=== PATIENT | male | born 1940 | race Caucasian/White ===

== ENCOUNTER 2018-06-17 18:06 | Inpatient (IN) | payer OTHER, MEDICARE ==
[~2018-06-17] VITALS: Ht 172.7 cm; Wt 101.2 kg
[~2018-06-17 18:06] MED LIST: AMIODARONE HCL200 M1 PO; ASPIRIN EC81 M1 PO; ASPIRIN81 M4 PO; ATENOLOL25 M1 PO; ATENOLOL25 MG PO; CARDIZEM CD120 MG PO; CARDIZEM30 M1 PO; CEPHALEXIN500 MG PO; COUMADIN1 M1 PO; COUMADIN2 M1 PO; DEPAKOTE500 M1 PO; DIVALPROEX SOD500 M1 PO; FUROSEMIDE40 M1 PO; FUROSEMIDE40 MG PO; HYDROCORTISONE15 GM TOP; K-DUR 20MEQ TA20 MEQ PO; KEPPRA 500MG T500 MG PO; KEPPRA500 M1 PO; KLOR-CON M2020 ME1 PO; LEVOTHYROXINE0.05 MG PO; METOLAZONE5 MG PO; METOPROLOL SUCC25 M1 PO; SENNA8.6 M3 PO; SIMVASTATIN40 M1 PO; SIMVASTATIN40 MG PO; SYNTHROID100 MCG PO; SYNTHROID50 MCG PO; TRAMADOL HCL50 M1 PO; ULTRAM50 M1 PO
[2018-06-17] MEDS ORDERED: LEVOTHYROXINE50 MCG PO (18:56)
[2018-06-17] MEDS ORDERED: CARBIDOPA-LEVO1 EAC9 PO (18:58)
[2018-06-17] MEDS ORDERED: CARBIDOPA-LEVO1 EAC7 PO (18:59)
[2018-06-17] MEDS ORDERED: MYRBETRIQ25 M1 PO (19:00)
--- NOTE | 2018-06-17 19:28 | ED GI/GU/ABDOMINAL COMPLAINT ---
History of Present Illness General Chief Complaint: General Adult Stated Complaint: MULTIPLE COMPLIANTS Source: patient, family, old records Exam Limitations: no limitations Vital Signs & Intake/Output Vital Signs & Intake/Output Vital Signs Date Time Temp Pulse Resp B/P B/P Pulse O2 O2 Flow FiO2 Mean Ox Delivery Rate 06/18 06 98.0 62 20 127/88 95 Room Air 06/17 2237 63 20 116/82 98 Room Air 06/17 2126 98.4 66 20 129/71 96 Room Air 06/17 2006 95 Room Air 06/17 1947 98.0 66 20 128/74 95 Room Air 06/17 1842 97.6 76 18 104/71 94 Room Air ED Intake and Output 06/18 0000 06/17 1200 Intake Total Output Total Balance Patient 223 lb Weight Allergies Coded Allergies: NO KNOWN ALLERGIES (05/25/13) Reconcile Medications Aspirin (Aspirin*) 81 MG TAB.CHEW 1 TAB PO DAILY HEART HEALTH (Reported) Atenolol 25 MG TABLET 1 TAB PO DAILY BLOOD PRESSURE (Reported) Carbidopa/Levodopa (Carbidopa-Levo ER 50-200 Tab) 50 MG-200 MG TABLET.ER 1 TAB PO QAM PARKINSONS (Reported) Carbidopa/Levodopa (Carbidopa-Levodopa 25-100 Tab) 25 MG-100 MG TABLET 1 TAB PO BID PARKINSONS (Reported) Diltiazem HCl (Cardizem) 30 MG TABLET 1 TAB PO DAILY RHYTHM CONTROL (Reported ) Divalproex Sodium (Depakote) 500 MG TABLET.DR 3 TAB PO DAILY seizure d/o ( Reported) Furosemide 40 MG TABLET 1 TAB PO BID FLUID OVERLOAD (Reported) Levetiracetam (Keppra) 500 MG TABLET 2 TAB PO QPM SEIZURE (Reported) Levetiracetam (Keppra) 500 MG TABLET 1 TAB PO QAM SEIZURE (Reported) Levothyroxine Sodium 50 MCG TABLET 1 TAB PO DAILY THYROID (Reported) Mirabegron (Myrbetriq) 25 MG TAB.ER.24H 1 TAB PO QAM BLADDER (Reported) Potassium Chloride (Klor-Con M20) 20 MEQ TAB.ER.PRT 1 TAB PO BID HYPOKALEMIA (Reported) Simvastatin (Simvastatin*) 40 MG TABLET 1 TAB PO QPM HLD (Reported) Tramadol HCl 50 MG TABLET 1 TAB PO DAILY PAIN (Reported) Warfarin Sodium (Coumadin) 2 MG TABLET 1 TAB PO 1700 BLOOD THINNER (Reported) Triage Note: PT TO TRIAGE WITH HIS SON, SON STATES THAT PT IS ON COUMADIN AND HE HAD LEVEL CHECKED TODAY AND IT IS 3.0, PT HAS HISTORY OF AFIB, PT ALSO FELL THIS PAST FRIDAY, STATES THAT HE TRIPPED AND FELL BACKWARDS ONTO HIS BACK, COMPLAINS OF R SIDE LOW BACK PAIN, ALSO STATES THAT HE HAS BRIGHT RED BLOOD IN HIS STOOL TODAY. PT IS SCHEDULED TO HAVE SURGERY ON HIS AAA AT END OF THE MONTH AND THEY ARE JUST CONCERNED Triage Nurses Notes Reviewed? yes Duration: getting worse Timing: recent history Quality/Severity: sharpness, severe, stabbing Severity Numbers: 8 HPI: Patient is a 77-year-old male with a past medical history of atrial fibrillation currently on Coumadin, seizure disorder on Keppra and Depakote sick sinus syndrome status post pacemaker placement, CAD 2 vessel bypass in January 2016 sleep apnea CHF with chronic lower extremity swelling who presents emergency room for concerns of a mechanical fall 6 days ago where he fell backward after miss stepping on the sidewalk where he struck his back to the floor where he denies any preceding episode of lightheaded sensation or dizziness, denies any head strike however since the injury he's been complaining of worsening back pain. Please note that patient has a past medical history of chronic back pain and surgical intervention. Patient also and family state that he has a surgical intervention for aortic aneurysm repair by vascular surgeon Dr. Alphonso Machuca on June 29 in which family states that they noted bright red blood approximately 1 tablespoon in patient's adult diapers and are concerned of GI bleed. Patient usually walks with a walker however has significant decline in his ambulatory status due to pain to his low back. Patient also complains of worsening lower extremity edema (Alex Chris) Past History Travel History Traveled to [place] past 21 day No Medical History Any Pertinent Medical History? see below for history Neurological: TIA, SEIZURE FORGETFULNESS? EENT: NONE Cardiovascular: AFIB, CAD, hypertension, hyperlipidemia, myocardial infarction, PACEMAKE chronic lower extremity edema with known venous insufficiency Respiratory: obstructive sleep apnea Gastrointestinal: NONE Hepatic: NONE Renal: UTI Musculoskeletal: chronic back pain, osteoarthritis, CELLULITIS Psychiatric: NONE DEPRESSION? Endocrine: NONE, HYPOTHYROID Blood Disorders: NONE Cancer(s): NONE DEDICATED LOCAL TRUCK DRIVER/Reproductive: NONE Other Medical Hx: seizures, hypertension, status post pacemaker, previous TIA, a history of ischemic heart disease, and a previous CO, obstructive sleep apnea, hypothyroidism, and hyperlipidemia. History of MRSA: No History of VRE: No History of CDIFF: No Surgical History Surgical History: CABG, VEIN STRIPPING RCW PACEMAKER LT WRIST SURGERY(SHAWN) Psychosocial History Who do you live with Significant Other Services at Home None What is your primary language Persian Tobacco Use: Never used ETOH Use: denies use Illicit Drug Use: denies illicit drug use Family History Hx Contributory? No (Alex Chris) Review of Systems Review of Systems Constitutional: Reports: see HPI, weakness. EENTM: Reports: no symptoms. Respiratory: Reports: see HPI, short of breath. Cardiovascular: Reports: see HPI. Denies: chest pain. GI: Reports: see HPI, bloody stool. Genitourinary: Reports: no symptoms. Musculoskeletal: Reports: see HPI, back pain. Skin: Reports: no symptoms. Neurological/Psychological: Reports: no symptoms. Hematologic/Endocrine: Reports: bleeding. Immunologic/Allergic: Reports: no symptoms. All Other Systems: Reviewed and Negative (Alex Chris) Physical Exam Physical Exam General Appearance: lethargic, obese Head: atraumatic Eyes: Bilateral: normal appearance, PERRL, EOMI. Ears, Nose, Throat, Mouth: hearing grossly normal, moist mucous membrane Neck: normal inspection, no midline tenderness Respiratory: normal breath sounds, chest non-tender, no respiratory distress Cardiovascular: regular rate/rhythm Peripheral Pulses: 2+ dorsalis pedis (R), 2+ dorsalis pedis (L) Gastrointestinal: tenderness (GENERALIZED) Rectal: heme positive stool, BROWN STOOL Back: vertebral tenderness, decreased range of motion Extremities: pedal edema Neurologic/Psych: no motor/sensory deficits, oriented x 3 Skin: intact, normal color Comments: Bilateral lower extremity +3 pitting edema no erythema or warmth dermatomes intact Core Measures ACS in differential dx? Yes Sepsis Present: No Sepsis Focused Exam Completed? No (Alex Chris) Progress Differential Diagnosis: AAA, AMI, appendicitis, biliary colic, bowel obstruction , colon cancer, cholecystitis, diverticulitis, epididymitis, esophageal varices, gastritis, hepatitis, hernia, hemorrhoids, ischemic bowel, inflamm bowel dis, Yolanda-Blanka tear, orchitis, pancreatitis, prostatitis, peptic ulcer, PUD/GERD, perforated viscous, pyelonephritis, SBO, testicular torsion, ureterolithiasis, urinary retention, urethritis, UTI/pyelo Plan of Care: Orders Procedure Date/time Status Heart Healthy Diet 06/18 B Active ED Holding Orders 06/18 0857 Active Admit to inpatient 06/18 0857 Active Vital Signs 06/18 0857 Active Code Status 06/18 0857 Active CASE MANAGEMENT CONSULT 06/18 0701 Active PT Evaluate & Treat 06/18 07 Active Add-on Test (ER Only) 06/17 2242 Active URINALYSIS 06/17 2126 Complete DEPAKOTE LEVEL 06/17 2112 Complete TROPONIN LEVEL 06/17 1948 Complete PARTIAL THROMBOPLASTIN TIME 06/17 1948 Complete PROTHROMBIN TIME 06/17 1948 Complete LACTIC ACID 06/17 1948 Complete COMPREHENSIVE METABOLIC PANEL 06/17 1948 Complete CBC WITHOUT DIFFERENTIAL 06/17 1948 Complete EKG 06/17 1948 Active Current Medications Sig/H[place] Start time Last Medication Dose Stop Time Status Admin Levetiracetam 1,000 MG QPM 06/18 2100 UNVr 06/17 (Juan Antonio) 2258 Laboratory Tests 06/17/18 2334: Urine Color STRAW, Urine Clarity CLEAR, Urine pH 6.0, Ur Specific [place] 1.015, Urine Protein NEG, Urine Ketones NEG, Urine Nitrite NEG, Urine Bilirubin NEG, Urine Urobilinogen 0.2, Ur Leukocyte Esterase NEG, Ur Microscopic EXAM NOT REQUIRED, Urine Hemoglobin NEG, Urine Glucose NEG 06/17/18 2248: Lactic Acid Cancelled 06/17/182: Anion Gap 9, Estimated GFR > 60, BUN/Creatinine Ratio 31.1 H, Glucose 82, Lactic Acid 1.3, Calcium 8.7, Total Bilirubin 0.5, AST 14 L, ALT 14 L, Alkaline Phosphatase 68, Troponin I < 0.01, Total Protein 5.7 L, Albumin 3.0 L , Globulin 2.7, Albumin/Globulin Ratio 1.1, Valproic Acid 50.8 06/17/18 2019: PT 32.1 H, INR 2.91 H, APTT 36, CBC w Diff NO MAN DIFF REQ, RBC 4.98, MCV 96.8 H, MCH 32.5 H, MCHC 33.5, RDW 15.1 H, MPV 6.7 L, Gran % 68.2, Lymphocytes % 24.6, Monocytes % 5.8, Eosinophils % 1.0, Basophils % 0.4, Absolute Granulocytes 3.6, Absolute Lymphocytes 1.3, Absolute Monocytes 0.3, Absolute Eosinophils 0.1, Absolute Basophils 0 Patient upon initial presentation was lethargic appearing however alert and oriented and responded all commands appropriately patient has significant ambulatory dysfunction where he required three-person lift transfer from the wheelchair to patient's bed Patient had unremarkable findings of his blood work CT scan was also unremarkable however there is significant concerned of ambulatory status and decline in his function at home in which he will require possible short-term rehabilitation and physical therapy. Case management was paged Discuss HANDOFF WITH Yordan Samayoa MD Physical therapy order was made for tomorrow Diagnostic Imaging: Viewed by Me: CT Scan. Radiology Impression: no acute abnormality Initial ED EKG: normal QRS complex, normal sinus rhythm, NSR 63 BPM Prior EKG: unchanged Hand-Off Endorsed To: Yordan Samayoa MD Endorsed Time: 2250 Pending: consult Comments: PATIENT: PHANI SUMMERS PRESENT AGE: 77 PATIENT ACCOUNT NO: [id number] : 42 LOCATION: [facility] ORDERING PHYSICIAN: Alex GROVER SERVICE DATE: 06/17/18 EXAM TYPE: CAT - CT ABD & PELVIS W/O IV CONTRAS; CT CHEST WO IV CONTRAST EXAMINATION: CT CHEST, ABDOMEN AND PELVIS WITHOUT CONTRAST CLINICAL INFORMATION: Fall with back pain, head strike, shortness of breath. COMPARISON: CT angiogram abdomen and pelvis 06/08/[address] pulmonary angiogram 06/05/2010 TECHNIQUE: Multidetector volumetric imaging was performed from the thoracic inlet through the pubic symphysis without IV contrast. Sagittal and coronal reformatted images were obtained on the technologist's workstation. DLP: 1493.00 mGy-cm FINDINGS: CHEST: LUNG: Some chronic changes are present in the lung with some scarring and possible bronchiectasis but no worrisome finding is present. MEDIASTINUM: Patient is status post median sternotomy and pacemaker placement. Marked coronary calcifications are seen. A tricuspid aortic valve is seen with calcifications. A thoracic aortic aneurysm is not present. PERICARDIUM/PLEURA: No significant effusion. No pleural mass or thickening. Some punctate calcifications are noted along the pleura posteriorly in the lower lobes. CHEST WALL/AXILLA: Unremarkable. No fractures are seen. ABDOMEN/PELVIS: PERITONEAL SPACE:No significant free air or free fluid identified. LIVER, GALLBLADDER, BILIARY TREE: The liver is normal in size, shape, and attenuation. No focal hepatic lesion or biliary ductal dilatation is present. The gallbladder is unremarkable with no evidence of radiopaque gallstones, gallbladder wall thickening, or obvious pericholecystic inflammatory changes. PANCREAS: Unremarkable. SPLEEN: Unremarkable. ADRENAL GLANDS: Unremarkable. KIDNEYS AND URETERS: The kidneys are normal in size, shape, and attenuation. No hydronephrosis, hydroureter, or calculi seen. No perinephric stranding. A simple renal cyst is noted on the right but no solid masses are seen. BLADDER: Unremarkable. GASTROINTESTINAL TRACT: A small hiatal hernia is present. Diverticular changes are present in the colon without evidence of diverticulitis. The small bowel and appendix are unremarkable. ABDOMINAL WALL: No significant hernia is appreciated. Small periumbilical hernia seen containing only fat. LYMPH NODES: No lymphadenopathy. VASCULAR: There is an infrarenal abdominal aortic aneurysm present that has not significantly in size. It measures 5.6 x 6.0 cm in diameter. There is no evidence of retroperitoneal hemorrhage. 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 PELVIC VISCERA: The prostate and seminal vesicles appear normal aside from the presence of some calcifications in the prostate with an area of high density on the left. OSSEUS STRUCTURES: Patient is status post kyphoplasty at multiple levels: L3, L2 and T8. There is a compression fracture of L1 which appears similar in configuration to the prior study from 06/08/2018. No new compression fractures are seen. No bony destructive lesions are seen. No acute rib or pelvic fractures are seen. IMPRESSION: 1. An injury secondary to the patient's fall causing back pain has not been found. 2. Incidental note is made of: right simple renal cyst, small hiatal hernia, colonic diverticulosis, large infrarenal abdominal aortic aneurysm, high density area on the left of the prostate. 3. An unchanged compression fracture of L1 with multiple previous redemonstrated vertebrae treated with kyphoplasty. DICTATED BY: James Quinones MD DATE/TIME DICTATED:06/17/182109 EVIDENCE TECHNICIAN:BARRON DATE/TIME TRANSCRIBED:06/17/18 PATIENT: PHANI SUMMERS PRESENT AGE: 77 PATIENT ACCOUNT NO: [id number] : 42 LOCATION: [facility] ORDERING PHYSICIAN: Alex GROVER SERVICE DATE: 06/17/18 EXAM TYPE: CAT - CT CERV SPINE WO IV CONTRAST; CT HEAD WO IV CONTRAST EXAMINATIONS: CT HEAD WITHOUT CONTRAST AND CT CERVICAL SPINE WITHOUT CONTRAST CLINICAL INFORMATION: Pain after fall. Trauma. COMPARISON: 09/23/2017. TECHNIQUE: Contiguous helical images of the brain were obtained without IV contrast. Contiguous helical images of the cervical spine were obtained without IV contrast. Multiplanar reconstructions were performed. DLP: 944 mGy-cm. FINDINGS: There are no pathologic extra-axial fluid collections. The lateral, third, fourth ventricles are prominent, though stable, age-appropriate and concordant with the appearance of the sulci. There is no evidence for acute intraparenchymal hemorrhage or infarct. There is neither mass nor mass effect. There is no shift of midline structures. The paranasal sinuses and mastoid air cells are clear. There are no osseous lesions. The cervical vertebra are in normal alignment. There is disc height loss at C3/C4, C5/C6 and C6/C7 with anterior osteophyte formation. Disc heights and vertebral heights are otherwise well-preserved. There are no fractures. There is no prevertebral soft tissue swelling. There is no cervical lymphadenopathy. The visualized lung apices are clear. IMPRESSION: No evidence for acute intracranial injury. Stable age-appropriate appearance of the brain. No evidence for acute injury to the cervical spine. Stable degenerative change within the cervical spine. DICTATED BY: Toro Hess MD DATE/TIME DICTATED:06/17/182109 EVIDENCE TECHNICIAN:BARRON DATE/TIME TRANSCRIBED:06/17/182109 (lAex Chris) Departure Departure Disposition: STILL A PATIENT Condition: Stable Clinical Impression Primary Impression: Low back pain Secondary Impressions: Unable to ambulate, Weakness Referrals: Rosalio STEVENSMLubna Pratt (PCP/Family) Departure Forms: Customer Survey General Discharge Information (Alex Chris) PA/SENIOR DATA DEVELOPER Co-Sign Statement Statement: ED Attending supervision documentation- [x] I saw and evaluated the patient. I have also reviewed all the pertinent lab results and diagnostic results. I agree with the findings and the plan of care as documented in the PA's/SENIOR DATA DEVELOPER's documentation. Patient presents for evaluation of injury sustained status post fall. Physical examination reveals decreased range of motion of his back due to pain. [] I have reviewed the ED Record and agree with the PA's/SENIOR DATA DEVELOPER's documentation. [] Additions or exceptions (if any) to the PAs/SENIOR DATA DEVELOPER's note and plan are summarized below: [] (Danita STEVENS,Yordan Richardson) Admission Note Spoke With: Stanford STEVENS,Jessi Documentation of Exam: Documentation of any treatments & extenuating circumstances including Concerns Regarding Discharge (functional status, medication knowledge or non-compliance, living conditions, etc.) that warrant an admission rather than observation: [ Patient to be admitted for intractable low back pain. Patient will need pain control, physical therapy as well as case management evaluation, anticipate short-term rehabilitation.] (Augustine STEVENS,Andi Ortiz)
[2018-06-17 20:30] LABS: ABSOLUTE BASOPHIL COUNT 0 /CUMM (0.0-0.2); ABSOLUTE EOSINOPHIL COUNT 0.1 /CUMM (0.0-0.7); ABSOLUTE GRANULOCYTE CT 3.6 /CUMM (1.4-6.5); ABSOLUTE LYMPH COUNT 1.3 /CUMM (1.2-3.4); ABSOLUTE MONOCYTE COUNT 0.3 /CUMM (0.10-0.60); BASOPHIL % 0.4 % (0.0-2.0); GRANULOCYTE % 68.2 % (42.2-75.2); HEMATOCRIT 48.2 % (42-52); MEAN CORPUSCULAR HGB 32.5 PG (27.0-31.0); MEAN CORPUSCULAR HGB CONC 33.5 G/DL (33.0-37.0); MEAN CORPUSCULAR VOLUME 96.8 FL (80.0-94.0); MEAN PLATELET VOLUME 6.7 FL (7.4-10.4); PLATELET COUNT 224 /CUMM (130-400); RBC DISTRIBUTION WIDTH 15.1 % (11.5-14.5); RED BLOOD CELL CT 4.98 /CUMM (4.70-6.10); WHITE BLOOD CELL COUNT 5.2 /CUMM (4.8-10.8)
[2018-06-17 20:44] LABS: PT 32.1 SEC (9.4-12.5); PTT 36 SEC (25-37)
--- NOTE | 2018-06-17 21:19 | CT SCAN REPORT ---
EXAMINATIONS: CT HEAD WITHOUT CONTRAST AND CT CERVICAL SPINE WITHOUT CONTRAST CLINICAL INFORMATION: Pain after fall. Trauma. COMPARISON: 09/23/2017. TECHNIQUE: Contiguous helical images of the brain were obtained without IV contrast. Contiguous helical images of the cervical spine were obtained without IV contrast. Multiplanar reconstructions were performed. DLP: 944 mGy-cm. FINDINGS: There are no pathologic extra-axial fluid collections. The lateral, third, fourth ventricles are prominent, though stable, age-appropriate and concordant with the appearance of the sulci. There is no evidence for acute intraparenchymal hemorrhage or infarct. There is neither mass nor mass effect. There is no shift of midline structures. The paranasal sinuses and mastoid air cells are clear. There are no osseous lesions. The cervical vertebra are in normal alignment. There is disc height loss at C3/C4, C5/C6 and C6/C7 with anterior osteophyte formation. Disc heights and vertebral heights are otherwise well-preserved. There are no fractures. There is no prevertebral soft tissue swelling. There is no cervical lymphadenopathy. The visualized lung apices are clear. IMPRESSION: No evidence for acute intracranial injury. Stable age-appropriate appearance of the brain. No evidence for acute injury to the cervical spine. Stable degenerative change within the cervical spine.
--- NOTE | 2018-06-17 21:57 | CT SCAN REPORT ---
EXAMINATION: CT CHEST, ABDOMEN AND PELVIS WITHOUT CONTRAST CLINICAL INFORMATION: Fall with back pain, head strike, shortness of breath. COMPARISON: CT angiogram abdomen and pelvis 06/08/[address] pulmonary angiogram 06/05/2010 TECHNIQUE: Multidetector volumetric imaging was performed from the thoracic inlet through the pubic symphysis without IV contrast. Sagittal and coronal reformatted images were obtained on the technologist's workstation. DLP: 1493.00 mGy-cm FINDINGS: CHEST: LUNG: Some chronic changes are present in the lung with some scarring and possible bronchiectasis but no worrisome finding is present. MEDIASTINUM: Patient is status post median sternotomy and pacemaker placement. Marked coronary calcifications are seen. A tricuspid aortic valve is seen with calcifications. A thoracic aortic aneurysm is not present. PERICARDIUM/PLEURA: No significant effusion. No pleural mass or thickening. Some punctate calcifications are noted along the pleura posteriorly in the lower lobes. CHEST WALL/AXILLA: Unremarkable. No fractures are seen. ABDOMEN/PELVIS: PERITONEAL SPACE:No significant free air or free fluid identified. LIVER, GALLBLADDER, BILIARY TREE: The liver is normal in size, shape, and attenuation. No focal hepatic lesion or biliary ductal dilatation is present. The gallbladder is unremarkable with no evidence of radiopaque gallstones, gallbladder wall thickening, or obvious pericholecystic inflammatory changes. PANCREAS: Unremarkable. SPLEEN: Unremarkable. ADRENAL GLANDS: Unremarkable. KIDNEYS AND URETERS: The kidneys are normal in size, shape, and attenuation. No hydronephrosis, hydroureter, or calculi seen. No perinephric stranding. A simple renal cyst is noted on the right but no solid masses are seen. BLADDER: Unremarkable. GASTROINTESTINAL TRACT: A small hiatal hernia is present. Diverticular changes are present in the colon without evidence of diverticulitis. The small bowel and appendix are unremarkable. ABDOMINAL WALL: No significant hernia is appreciated. Small periumbilical hernia seen containing only fat. LYMPH NODES: No lymphadenopathy. VASCULAR: There is an infrarenal abdominal aortic aneurysm present that has not significantly in size. It measures 5.6 x 6.0 cm in diameter. There is no evidence of retroperitoneal hemorrhage. 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 PELVIC VISCERA: The prostate and seminal vesicles appear normal aside from the presence of some calcifications in the prostate with an area of high density on the left. OSSEUS STRUCTURES: Patient is status post kyphoplasty at multiple levels: L3, L2 and T8. There is a compression fracture of L1 which appears similar in configuration to the prior study from 06/08/2018. No new compression fractures are seen. No bony destructive lesions are seen. No acute rib or pelvic fractures are seen. IMPRESSION: 1. An injury secondary to the patient's fall causing back pain has not been found. 2. Incidental note is made of: right simple renal cyst, small hiatal hernia, colonic diverticulosis, large infrarenal abdominal aortic aneurysm, high density area on the left of the prostate. 3. An unchanged compression fracture of L1 with multiple previous redemonstrated vertebrae treated with kyphoplasty.
[2018-06-18 08:01] VITALS: BP 140/90
--- NOTE | 2018-06-18 09:56 | History & Physical ---
Odalis Panda 06/18/18 0956: General Information and HPI MD Statement: I have seen and personally examined SAJAN SUMMERS SR and documented this H&P. The patient is a 77 year old M who presented with a patient stated chief complaint of [mechanical fall]. Source of Information: patient, family Exam Limitations: no limitations History of Present Illness: Patient is a pleasant 77-year-old male, with past medical history of seizure disorder on divalproex and Keppra, coronary artery disease status post CABG in October 2016, peripheral venous disease, abdominal aortic aneurysm 6 cm being followed by [facility]. fib on Coumadin was brought into hospital by family last night due to back pain. Patient states that he fell last week due to gait instability while coming in from the porch. Patient states that he lost his balance and had his right side of the head and body hit with the house wall. His was by his side it immediately helped him. Patient reports that since then his back pain has been progressively getting worse. It is 10/10 at worse, sharp in the right lower abdominal region, and radiates as dull ache to the right leg. Patient reports that the pain is worsened by movement, as much as he was unable to move forward for the lung auscultation. At home, he was taking Tylenol 500 mg every 4 hours for pain. Patient denies any loss of consciousness , bowel or bladder accident, seizure activity. His last seizure episode was on 10/26/16. Patient was using cane at the time of the fall. Patient also reports that last night, he noticed that his stools were slightly reddish/pink when he wiped himself. Patient had a screening coloscopy done 5 years ago, which demonstrated 2 polyps which were taken out. Patient has been taking blood thinners regularly, and reports that he never had any similar episodes in the past. Patient denies any headache, dizziness, chest pain, palpitations, burning micturition. He does report of urinary hesitancy which has been ongoing. Dr. Burrell is his primary care physician, Dr. Gibbons is his route cdl driver, Dr. tanner Tyler is his vascular specialist. Allergies/Medications Allergies: Coded Allergies: NO KNOWN ALLERGIES (05/25/13) Past History Travel History Traveled to [place] past 21 day No Medical History Neurological: TIA, SEIZURE FORGETFULNESS? EENT: NONE Cardiovascular: AFIB, CAD, hypertension, hyperlipidemia, myocardial infarction, PACEMAKE chronic lower extremity edema with known venous insufficiency Respiratory: obstructive sleep apnea Gastrointestinal: NONE Hepatic: NONE Renal: UTI Musculoskeletal: chronic back pain, osteoarthritis, CELLULITIS Psychiatric: NONE DEPRESSION? Endocrine: NONE, HYPOTHYROID Blood Disorders: NONE Cancer(s): NONE TUBE BENDER HAND/Reproductive: NONE Other Medical Hx: seizures, hypertension, status post pacemaker, previous TIA, a history of ischemic heart disease, and a previous PR, obstructive sleep apnea, hypothyroidism, and hyperlipidemia. History of MRSA: No History of VRE: No History of CDIFF: No Surgical History Surgical History: CABG, VEIN STRIPPING RCW PACEMAKER LT WRIST SURGERY(SHAWN) Past Family/Social History Psychosocial History Where do you live? Home Who Do You Live With? spouse Services at Home: None ETOH Use: denies use Illicit Drug Use: denies illicit drug use Review of Systems Review of Systems Constitutional: Reports: see HPI. Exam & Diagnostic Data Last 24 Hrs of Vital Signs/I&O Vital Signs Date Time Temp Pulse Resp B/P B/P Pulse O2 O2 Flow FiO2 Mean Ox Delivery Rate 06/18 0824 97.8 80 18 124/70 96 Room Air 06/18 0623 98.0 62 20 127/88 95 Room Air 06/17 2237 63 20 116/82 98 Room Air 06/17 2126 98.4 66 20 129/71 96 Room Air 06/17 2006 95 Room Air 06/17 1947 98.0 66 20 128/74 95 Room Air 06/17 1842 97.6 76 18 104/71 94 Room Air Intake & Output 06/18 1600 06/18 0800 06/18 0000 Intake Total Output Total Balance Patient 101.151 kg Weight Physical Exam General Appearance Alert, Oriented X3, Cooperative, Mild Distress Skin No Rashes, No Breakdown HEENT Atraumatic, PERRLA Neck Supple, No JVD Cardiovascular Regular Rate, Normal S1, Normal S2 Lungs Clear to Auscultation, Normal Air Movement Abdomen Normal Bowel Sounds, No Tenderness, SLIGHTLY DISTENDED Neurological Normal Speech Extremities B/L LOWER EXTREMETY EDEMA, NON PITTING Vascular Normal Pulses Last 24 Hrs of Labs/Emmanuel: Laboratory Tests 06/17/18 2334: Urine Color STRAW, Urine Clarity CLEAR, Urine pH 6.0, Ur Specific Avant 1.015, Urine Protein NEG, Urine Ketones NEG, Urine Nitrite NEG, Urine Bilirubin NEG, Urine Urobilinogen 0.2, Ur Leukocyte Esterase NEG, Ur Microscopic EXAM NOT REQUIRED, Urine Hemoglobin NEG, Urine Glucose NEG 06/17/188: Lactic Acid Cancelled 06/17/182111: Anion Gap 9, Estimated GFR > 60, BUN/Creatinine Ratio 31.1 H, Glucose 82, Lactic Acid 1.3, Calcium 8.7, Total Bilirubin 0.5, AST 14 L, ALT 14 L, Alkaline Phosphatase 68, Troponin I < 0.01, Total Protein 5.7 L, Albumin 3.0 L , Globulin 2.7, Albumin/Globulin Ratio 1.1, Valproic Acid 50.8 06/17/182018: PT 32.1 H, INR 2.91 H, APTT 36, CBC w Diff NO MAN DIFF REQ, RBC 4.98, MCV 96.8 H, MCH 32.5 H, MCHC 33.5, RDW 15.1 H, MPV 6.7 L, Gran % 68.2, Lymphocytes % 24.6, Monocytes % 5.8, Eosinophils % 1.0, Basophils % 0.4, Absolute Granulocytes 3.6, Absolute Lymphocytes 1.3, Absolute Monocytes 0.3, Absolute Eosinophils 0.1, Absolute Basophils 0 Assessment/Plan Assessment: Patient is a pleasant 77-year-old male, with past medical history of seizure disorder on divalproex and Keppra, coronary artery disease status post CABG in October 2016, peripheral venous disease, abdominal aortic aneurysm 6 cm being followed by [facility]. fib on Coumadin was brought into hospital by family last night due to back pain. Patient states that he fell last week due to gait instability while coming in from the porch. Patient states that he lost his balance and had his right side of the head and body hit with the house wall. His was by his side it immediately helped him. Patient reports that since then his back pain has been progressively getting worse. It is 10/10 at worse, sharp in the right lower abdominal region, and radiates as dull ache to the right leg. Patient reports that the pain is worsened by movement, as much as he was unable to move forward for the lung auscultation. At home, he was taking Tylenol 500 mg every 4 hours for pain. Patient denies any loss of consciousness , bowel or bladder accident, seizure activity. His last seizure episode was on 10/26/16. Patient was using cane at the time of the fall. Problem list Mechanical fall hx Seizure disorder hx Coronary artery disease status post CABG hx paroxysmal Atrial fibrillation on Coumadin hx Abdominal aortic aneurysm Hx of Sick sinus syndrome status post pacemaker placement hx hypothyroidism Plan We'll admit the patient on general medicine floor for closer monitoring. His fall is mechanical in nature, will get right hip x-ray to evaluate for any hip fracture, pain regimen with Tylenol mild, tramadol moderate, percocet severe. Patient requested that Dr. Tanner Cesar be informed for his hospital admission as he was scheduled for surgical repair of abdominal aortic aneurysm on 06/29/18 with him. Given his history of red blood in stool yesterday which could be secondary to diverticulosis or hemorrhoids, will check stool guaiac, and get CBC today. If he is guaiac positive today, will check with cardiology regarding his anticoagulation. Patient got his dose of warfarin yesterday, will check INR today. We'll continue the rest of his home medications including divalproex, Keppra, K- Aleena, carbidopa levodopa, warfarin, furosemide, simvastatin, aspirin, diltiazem, atenolol. Patient has a history of diabetes mellitus, however currently he is not on any antidiabetic medication. Will check his HbA1c. Of note, patient states that he was cleared by cardiology, Dr. Gibbons, for the repair of his abdominal aortic aneurysm earlier this week. DVT prophylaxis, patient has therapeutic INR Patient is full code, son Sajan is POA. As Ranked By This Provider Problem List: 1. Fall Core Measures/Misc (08/17) Acute Coronary Syndrome ACS Diagnosis: No Congestive Heart Failure Congestive Heart Failure Diagnosis No Cerebrovascular Accident CVA/TIA Diagnosis: No VTE (View Protocol) VTE Risk Factors Age>40 No Mechanical VTE Prophylaxis d/t N/A MechProphylax Ordered No VTE Pharm Prophylaxis d/t NA PharmProphylax ordered (ON WARFARIN) Sepsis (View protocol) Sepsis Present: No If YES complete Sepsis Event Note If YES complete Sepsis Event Note Julissa Marcano 06/18/18 1050: General Information and HPI Allergies/Medications Home Med list Aspirin (Aspirin*) 81 MG TAB.CHEW 1 TAB PO DAILY HEART HEALTH (Reported) Atenolol 25 MG TABLET 1 TAB PO DAILY BLOOD PRESSURE (Reported) Carbidopa/Levodopa (Carbidopa-Levodopa 25-100 Tab) 25 MG-100 MG TABLET 1 TAB PO 12 PM + 5 PM PARKINSONS (Reported) Carbidopa/Levodopa (Carbidopa-Levo ER 50-200 Tab) 50 MG-200 MG TABLET.ER 1 TAB PO QAM PARKINSONS (Reported) Diltiazem HCl (Cardizem) 30 MG TABLET 1 TAB PO DAILY RHYTHM CONTROL (Reported ) Divalproex Sodium (Depakote) 500 MG TABLET.DR 1 TAB PO DAILY SEIZURES ( Reported) Furosemide 40 MG TABLET 1 TAB PO BID FLUID OVERLOAD (Reported) Levetiracetam (Keppra) 500 MG TABLET 2 TAB PO QPM SEIZURE (Reported) Levetiracetam (Keppra) 500 MG TABLET 1 TAB PO QAM SEIZURE (Reported) Levothyroxine Sodium 50 MCG TABLET 1 TAB PO DAILY THYROID (Reported) Mirabegron (Myrbetriq) 25 MG TAB.ER.24H 1 TAB PO QAM BLADDER (Reported) Potassium Chloride (Klor-Con M20) 20 MEQ TAB.ER.PRT 1 TAB PO BID HYPOKALEMIA (Reported) Simvastatin (Simvastatin*) 40 MG TABLET 1 TAB PO QPM HLD (Reported) Tramadol HCl 50 MG TABLET 1 TAB PO DAILY PAIN (Reported) Warfarin Sodium (Coumadin) 2 MG TABLET 1 TAB PO 1700 BLOOD THINNER (Reported) Core Measures/Misc (08/17) Sepsis (View protocol) If YES complete Sepsis Event Note If YES complete Sepsis Event Note Attending MD Review Statement Attending Statement Attending MD Statement: examined this patient, discuss w/resident/PA/COLLAR BAND CREASER, agreed w/resident/PA/COLLAR BAND CREASER, discussed with family, reviewed EMR data (avail), discussed with nursing, discussed with case mgmt, reviewed images, amended to note Attending Assessment/Plan: Patient came here with mechanical fall. Patient also reported epsidoe of pinkish blood in stools. His CBC on admission looks stable or infact possible hemoconcentrated. Patient is on asa, warfarin for his afib and h/o CAD. Patient is found to have aortic aneursym 6 cm and scheduled for elective repair as outpatient with Vascular surgery. Patient is admitted for back pain s/p mechanical fall without any acute fractures but severe degernative disease and BRBPR. Patient will be monitored for serial cbc, transfuse if hb<8. Monitor hemodynamics and provide pain control. INR 2.91 therpauetic. gi/dvt prophyalxis
--- NOTE | 2018-06-18 10:37 | RADIOLOGY REPORT ---
EXAMINATION: XR HIP, RIGHT CLINICAL INFORMATION: Right hip pain status post following fall. Evaluate for possible fracture. COMPARISON: CT of the abdomen and pelvis dated 06/17/2018. TECHNIQUE: Two views of the right hip. The frog leg lateral views limited due to underpenetration. FINDINGS: The soft tissues are unremarkable. The bones are normal in mineralization architecture. There is mild degenerative changes of the right hip joint. There is no of evidence of a fracture of the right hip, acetabular, or pubic rami. IMPRESSION: Limited study, no apparent right hip fracture.
[2018-06-18 10:45] VITALS: BP 124/77
[2018-06-18 12:26] LABS: ABSOLUTE BASOPHIL COUNT 0 /CUMM (0.0-0.2); ABSOLUTE EOSINOPHIL COUNT 0.1 /CUMM (0.0-0.7); ABSOLUTE GRANULOCYTE CT 2.1 /CUMM (1.4-6.5); ABSOLUTE LYMPH COUNT 1.2 /CUMM (1.2-3.4); ABSOLUTE MONOCYTE COUNT 0.3 /CUMM (0.10-0.60); BASOPHIL % 0.5 % (0.0-2.0); EOSINOPHIL % 1.6 % (0-5); GRANULOCYTE % 57.9 % (42.2-75.2); HEMATOCRIT 43.7 % (42-52); MEAN CORPUSCULAR HGB 32.6 PG (27.0-31.0); MEAN CORPUSCULAR HGB CONC 33.4 G/DL (33.0-37.0); MEAN CORPUSCULAR VOLUME 97.6 FL (80.0-94.0); MEAN PLATELET VOLUME 6.6 FL (7.4-10.4); PLATELET COUNT 223 /CUMM (130-400); RBC DISTRIBUTION WIDTH 14.9 % (11.5-14.5); RED BLOOD CELL CT 4.48 /CUMM (4.70-6.10); WHITE BLOOD CELL COUNT 3.6 /CUMM (4.8-10.8)
[2018-06-18 12:47] LABS: PT 37.2 SEC (9.4-12.5)
[2018-06-18 14:03] VITALS: BP 106/59
[2018-06-18 22:45] VITALS: BP 110/50
[2018-06-19 06:38] VITALS: BP 125/76
--- NOTE | 2018-06-19 07:13 | PN- Housestaff ---
See Addendum Subjective Follow-up For: Guaic + stool, s/p Mech Fall x 1 week ago, AAA Subjective: Patient seen and examined at bedside. Pt states that he still has some right hip pain, although denies any back pain at this time. Patient also states that none of his doctors have come to see him. Patient asked if his surgery can be moved up. Patient was reassured that we would talk with the surgeons, although it is highly unlikely that his scheduled surgery on June 29 will be pushed up because patient is admitted in hospital today. Patient denies any recent bright red blood per rectum. Patient also denies any pain with defecation. Denies fevers/ chills/night sweats/chest pain/abdominal pain/urinary symptoms/lower extremity edema Review of Systems Constitutional: Reports: see HPI. Objective Last 24 Hrs of Vital Signs/I&O Vital Signs Date Time Temp Pulse Resp B/P B/P Pulse O2 O2 Flow FiO2 Mean Ox Delivery Rate 06/19 0942 60 106/72 06/19 0942 60 106/72 06/19 0638 98.4 59 20 125/76 95 Room Air 06/18 2245 97.4 60 20 110/50 97 Room Air 06/18 1505 106/59 06/18 1403 98.0 60 20 106/59 95 Room Air Intake & Output 06/19 1600 06/19 0800 06/19 0000 Intake Total 240 360 Output Total 200 Balance 240 160 Intake, Oral 240 360 Number 0 Bowel Movements Output, Urine 200 Physical Exam General Appearance: Alert, Oriented X3, Cooperative, No Acute Distress Skin: No Rashes Skin Temp/Moisture Exam: Warm/Dry Cardiovascular: Regular Rate, Normal S1, Normal S2, pacemaker in place Lungs: Clear to Auscultation, Normal Air Movement Abdomen: Soft, No Tenderness, No Masses Neurological: Normal Speech, Sensation Intact Extremities: No Edema, R hip tenderness Current Medications: Current Medications Sig/Hilton Start time Last Medication Dose Route Stop Time Status Admin Acetaminophen 650 MG Q8P PRN 06/18 1045 AC PO Aspirin 81 MG DAILY 06/18 1026 AC 06/19 PO 0942 Atenolol 25 MG DAILY 06/18 1027 AC 06/19 PO 0942 Atorvastatin Calcium 20 MG 1700 06/18 1700 AC 06/18 PO 1708 Carbidopa/Levodopa 1 TAB 1200,1700 06/18 1200 AC 06/18 PO 1709 Carbidopa/Levodopa 1 TAB QAM 06/18 1027 AC 06/19 PO 0941 Diltiazem HCl 30 MG DAILY 06/18 1029 AC 06/19 PO 0942 Divalproex Sodium 1,000 MG 2000 06/18 2000 AC 06/18 PO 2035 Divalproex Sodium 500 MG DAILY 06/18 1030 AC 06/19 PO 0942 Furosemide 40 MG BID 06/18 1030 AC 06/19 PO 0941 Levetiracetam 1,000 MG QPM 06/18 2100 AC 06/17 PO 2258 Levetiracetam 500 MG QAM 06/18 1030 AC 06/19 PO 0941 Levothyroxine Sodium 0.05 MG DAILY AC 06/18 1030 AC 06/19 PO 0630 Mirabegron 25 MG DAILY 06/18 1045 AC 06/18 PO 1503 Oxycodone/ 1 TAB Q8P PRN 06/18 1045 AC 06/19 Acetaminophen PO 0904 Patient Medication 1 ED ONE ONE 06/18 1800 MI Teaching ED 06/18 1801 Potassium Chloride 20 MEQ BID 06/18 1031 AC 06/19 PO 0942 Tramadol HCl 50 MG Q6 PRN 06/18 0945 AC 06/19 PO 0424 Warfarin Sodium 2 MG COUMADIN 1700 06/19 1700 AC PO 06/19 2359 Last 24 Hrs of Lab/Emmanuel Results Last 24 Hrs of Labs/Mics: Laboratory Tests 06/19/18 0851: PT 19.7 H, INR 1.80 H, APTT 37 06/19/18 0608: Anion Gap 8, Estimated GFR > 60, BUN/Creatinine Ratio 25.6 H, CBC w Diff NO MAN DIFF REQ, RBC 4.50 L, MCV 97.6 H, MCH 33.2 H, MCHC 34.0, RDW 14.6 H, MPV 7.1 L, Gran % 53.0, Lymphocytes % 39.0, Monocytes % 5.4, Eosinophils % 2.2, Basophils % 0.4, Absolute Granulocytes 2.1, Absolute Lymphocytes 1.6, Absolute Monocytes 0.2, Absolute Eosinophils 0.1, Absolute Basophils 0 06/18/18 1211: Hemoglobin A1c 5.3, PT 37.2 H, INR 3.37 H, CBC w Diff NO MAN DIFF REQ, RBC 4.48 L, MCV 97.6 H, MCH 32.6 H, MCHC 33.4, RDW 14.9 H, MPV 6.6 L, Gran % 57.9, Lymphocytes % 32.0, Monocytes % 8.0, Eosinophils % 1.6, Basophils % 0.5, Absolute Granulocytes 2.1, Absolute Lymphocytes 1.2, Absolute Monocytes 0.3, Absolute Eosinophils 0.1, Absolute Basophils 0 Assessment/Plan Assessment: Mr Houston is a 77yo male with a history of AAA (5.6cm x 6cm) for which he is scheduled to have surgery on 06/29/[address] Lau, Seizure disorder, CHF, ANDRIY, and Paroxysmal Atrial Fibrillation for which he is on coumadin, presents with hip and back pain s/p witnessed mechanical fall by his in their home one week ago as well as BRBPR gauic positive, admitted for stable GI bleed and pain control #GI Bleed - BRBPR, Guaic +; stable, resolving -Hemoglobin normal. Upon admission 16.2-->14.6-->14.9 today. -Denies any recent BRBPR -Will get AM CBC to monitor. Transfuse if <8; low threshold for GI consult #Low Back Pain -On pain control regimen. Currently moderately controlled per patient. -Has had functional decline recently s/p mechanical fall. Normally ambulates with walker, single axis cane -CT Abd/Pelvis neg for trauma -PT Consult appreciated. Recommend STR; case management on board. #AAA -Stable, per CT scan -To go for surgery on 06/29 -Will contact his Vascular surgeon to let him know that pt is in hospital #Seizure D/o -Depakote level therapeutic. Will continue with home meds #A-Fib -INR subtherapeutic at 1.80 today. Will dose with 2mg coumadin tonight -Recheck INR tomorrow morning -Will contact his solid surface fabricator to let him know pt is in hospital. Pt continually asks when he will see cardiology, but has already been cleared for surgery prior to admission #CHF -Cw home medications IV Access DVT Ppx Heart Healthy Diet Full Code Dispo - to STR Problem List: 1. Low back pain 2. Weakness 3. Unable to ambulate Pain Ratin Pain Location: pathway Pain Goal: Pain 7 or less Pain Plan: Pathway Tomorrow's Labs & Rationales: INR
[2018-06-19 07:51] LABS: ABSOLUTE BASOPHIL COUNT 0 /CUMM (0.0-0.2); ABSOLUTE EOSINOPHIL COUNT 0.1 /CUMM (0.0-0.7); ABSOLUTE GRANULOCYTE CT 2.1 /CUMM (1.4-6.5); ABSOLUTE LYMPH COUNT 1.6 /CUMM (1.2-3.4); ABSOLUTE MONOCYTE COUNT 0.2 /CUMM (0.10-0.60); BASOPHIL % 0.4 % (0.0-2.0); EOSINOPHIL % 2.2 % (0-5); MEAN CORPUSCULAR HGB 33.2 PG (27.0-31.0); MEAN CORPUSCULAR VOLUME 97.6 FL (80.0-94.0); MEAN PLATELET VOLUME 7.1 FL (7.4-10.4); PLATELET COUNT 201 /CUMM (130-400); RBC DISTRIBUTION WIDTH 14.6 % (11.5-14.5); WHITE BLOOD CELL COUNT 4.1 /CUMM (4.8-10.8)
--- NOTE | 2018-06-19 09:15 | Discharge Summary ---
Visit Information Visit Dates Admission Date: 06/18/18 Hospital Course Course Attending Physician: Julissa Marcano MD [facility]: Mr. Houston is a pleasant 77-year-old male, with past medical history of seizure disorder on divalproex and Keppra, coronary artery disease status post CABG in October 2016, peripheral venous disease, abdominal aortic aneurysm 6 cm being followed by [facility]. fib on Coumadin was brought into hospital by family last night due to back pain. Patient states that he fell last week due to gait instability while coming in from the porch. Patient states that he lost his balance and had his right side of the head and body hit with the house wall. His was by his side it immediately helped him. Patient reports that since then his back pain has been progressively getting worse. It is 10/10 at worse, sharp in the right lower abdominal region, and radiates as dull ache to the right leg. Patient reports that the pain is worsened by movement, as much as he was unable to move forward for the lung auscultation. At home, he was taking Tylenol 500 mg every 4 hours for pain. Patient denies any loss of consciousness , bowel or bladder accident, seizure activity. His last seizure episode was on 10/26/16. Patient was using cane at the time of the fall. Patient was admitted to General [facility] for following managements Problem list #Mechanical fall #Acute onset Back pain 2/2 fall w/o acutefracture #Incidental findings of right renal cyst/hiatal hernia/colonic diverticulosis #BRBPR likely incidental hemorrhoid, no active bleeding/hemodynamic change, resolved #PMHx of L1 compression fracture w/ hx of kyphoplasty, Seizure disorder, Coronary artery disease status post CABG, paroxysmal Atrial fibrillation on Coumadin, Abdominal aortic aneurysm, Sick sinus syndrome status post pacemaker placement, hypothyroidism Hospital Course Patient was admitted to general medicien for closer monitoring. Pain regimen w/ Tylenol/Tramadol/Percocet was given to reach adequate pain control. Dr. Tubbs was informed for this admission as patient was scheduled for elective surgical repair of AAA on 06.29.2018. Patient's CBC was monitored on daily lab to ensure no acute drop of Hgb. No more episodes of BRBPR was found during hospital stay. Patient's Hgb stablized without active intervention for the rest of hospital stay. Daily INR was conducted to dose warfarin to keep INR between 2-3. Per patient, he was previously cleared by Dr. Gibbons for surgery. Patients home meds including divalproex, Keppra, K-Aleena, carbidopa levodopa, warfarin, furosemide, simvastatin, aspirin, diltiazem, atenolol were continued. His valporic acid was within therapeutical range. Due to his DM history, HbA1C was checked and found to be 5.3. DVT prophylaxis, Warfarin + ALPS Patient is full code, son Sajan is POA. Allergies: Coded Allergies: NO KNOWN ALLERGIES (05/25/13) Pertinent Lab Results: SERVICE DATE: 06/17/18 EXAM TYPE: CAT - CT CERV SPINE WO IV CONTRAST; CT HEAD WO IV CONTRAST IMPRESSION: No evidence for acute intracranial injury. Stable age-appropriate appearance of the brain. No evidence for acute injury to the cervical spine. Stable degenerative change within the cervical spine. SERVICE DATE: 06/17/18 EXAM TYPE: CAT - CT CERV SPINE WO IV CONTRAST; CT HEAD WO IV CONTRAST IMPRESSION: No evidence for acute intracranial injury. Stable age-appropriate appearance of the brain. No evidence for acute injury to the cervical spine. Stable degenerative change within the cervical spine. SERVICE DATE: 06/18/18 EXAM TYPE: RAD - XRY-HIP 2-3 VIEWS, RIGHT IMPRESSION: Limited study, no apparent right hip fracture. Disposition Summary Disposition Principal Diagnosis: #Mechanical fall #Acute onset Back pain 2/2 fall w/o acutefracture #Incidental findings of right renal cyst/hiatal hernia/colonic diverticulosis #BRBPR likely incidental hemorrhoid, no active bleeding/hemodynamic change, resolved #PMHx of L1 compression fracture w/ hx of kyphoplasty, Seizure disorder, Coronary artery disease status post CABG, paroxysmal Atrial fibrillation on Coumadin, Abdominal aortic aneurysm, Sick sinus syndrome status post pacemaker placement, hypothyroidism Additional Diagnosis: as above Discharge Disposition: SNF Discharge Instructions General Discharge Information Code Status: Full Code Patient's Diet: as tolerated Patient's Activity: as tolerated Follow-Up Instructions/Appts: - Please STOP taking aspirin and wafarin 5 days prior your AAA repair surgery. - Please follow up with your primary care physician within 1-2 weeks of discharge. Inform your primary care physician of this admission to [facility]. - Continue your current medications per discharge instructions. - Please watch for these problems: Fever, Chills, Nausea, Vomiting, Shortness of Breath, Productive Cough, Chest Pain/Discomfort, Abdominal Pain, Active Bleeding or Bloody urine/stool. Medications at Discharge Discharge Medications: Continue taking these medications: Furosemide (Furosemide) 40 MG TABLET 1 Tablet ORAL TWICE DAILY Comments: Last Taken: 06/21/18 Time: 0845 AM Potassium Chloride (Klor-Con M20) 20 MEQ TAB.ER.PRT 1 Tablet ORAL TWICE DAILY Comments: Last Taken: 06/21/18 Time: 0845 AM Levetiracetam (Keppra) 500 MG TABLET 2 Tablet ORAL Every night Comments: Last Taken: 06/20/18 Time: 7:45 PM Levetiracetam (Keppra) 500 MG TABLET 1 Tablet ORAL Every Morning Comments: Last Taken:06/21/18 Time:0845 AM Simvastatin (Simvastatin*) 40 MG TABLET 1 Tablet ORAL Every night Comments: Last Taken:06/21/18 Time:4:45 PM LIPITOR 20 MG GIVEN Aspirin (Aspirin*) 81 MG TAB.CHEW 1 Tablet ORAL DAILY Comments: Last Taken: 06/21/18 Time: 0845 AM Divalproex Sodium (Depakote) 500 MG TABLET.DR 1 Tablet ORAL DAILY Comments: Last Taken: 06/21/18 Time: 0845 AM Atenolol (Atenolol) 25 MG TABLET 1 Tablet ORAL DAILY Comments: Last Taken: 06/21/18 Time: 0845 AM Diltiazem HCl (Cardizem) 30 MG TABLET 1 Tablet ORAL DAILY Comments: Last Taken: 06/21/18 Time: 0845 AM Tramadol HCl (Tramadol HCl) 50 MG TABLET 1 Tablet ORAL DAILY Comments: Last Taken:06/20/18 Time:0500 AM Warfarin Sodium (Coumadin) 2 MG TABLET 1 Tablet ORAL 5 PM Comments: Last Taken:06/21/18 Time:5:00 PM Levothyroxine Sodium (Levothyroxine Sodium) 50 MCG TABLET 1 Tablet ORAL DAILY Comments: Last Taken:06/21/18 Time:0515 AM Carbidopa/Levodopa (Carbidopa-Levo ER 50-200 Tab) 50 MG-200 MG TABLET.ER 1 Tablet ORAL Every Morning Comments: Last Taken:06/21/18 Time:0845 AM Carbidopa/Levodopa (Carbidopa-Levodopa 25-100 Tab) 25 MG-100 MG TABLET 1 Tablet ORAL 12 PM + 5 PM Comments: Last Taken:06/21/18 Time:5:00 PM Mirabegron (Myrbetriq) 25 MG TAB.ER.24H 1 Tablet ORAL Every Morning Comments: Last Taken:06/21/18 Time:0845 AM Copies To: Ben Santamaria MD Attending MD Review Statement Documenting Attending: Julissa Marcano MD Other Findings: Discharging physician Dr Ted Fischer MD.
[2018-06-19 10:11] LABS: PT 19.7 SEC (9.4-12.5); PTT 37 SEC (25-37)
--- NOTE | 2018-06-19 10:36 | PN- Student ---
Subjective Subjective: CC: Back and Hip pain HPI: 77 y/o male with a history of AAA (5.6cm x 6cm) for which he is scheduled to have surgery on 06/29/[address] Lau, Seizure disorder, CHF, ANDRIY, and Paroxysmal Atrial Fibrillation for which he is anticoagulated, presents with hip and back pain s/p witnessed mechanical fall by his in their home one week ago as well as BRBPR that the patient observed after a bowel movement on 06/17/18. Patient is being treated for pain management and for monitoring of CBC s/p guaiac positive. Patient interviewed and examined at bedside this morning by both myself and Dr. Sahu while the patient's was in the room. Patient's main complaint is of his back and hip pain. Physical Therapy saw him this morning and was able to get him out of bed, but only for a few steps before the patient deemed "it was too much". Patient states that he would like to have his surgery while inpatient so "I'm not in and out" and stated "someone in the ER told me I could". Will make a courtesy call to Dr. Lau to let him know the patient is under our care at this time. Objective Objective: Vitals: Temp: 98.4F; Oral B/P: 106/72mmHg HR: 60bpm RR: 20br/min SpO2: 95% RA Patients lungs were clear to auscultation bilaterally from anterior and lateral approaches. Normal heart sounds assisted with a pacemaker heard in aortic, pulmonic, erbs, tricuspid, and mitral areas with both the diaphragm and gray. No visible distention, masses, puslatile masses, or signs of trauma noted upon inspection of the abdomen. Normoactive bowel sounds noted in all four quadrant with the diaphragm. Abdomen is non-tender to palpation. No masses, pulsatile masses, or hernias noted upon palpation. Results Results: Laboratory Tests 06/19/18 0851: PT Pending, INR Pending, APTT Pending 06/19/18 0608: Anion Gap 8, Estimated GFR > 60, BUN/Creatinine Ratio 25.6 H, CBC w Diff NO MAN DIFF REQ, RBC 4.50 L, MCV 97.6 H, MCH 33.2 H, MCHC 34.0, RDW 14.6 H, MPV 7.1 L, Gran % 53.0, Lymphocytes % 39.0, Monocytes % 5.4, Eosinophils % 2.2, Basophils % 0.4, Absolute Granulocytes 2.1, Absolute Lymphocytes 1.6, Absolute Monocytes 0.2, Absolute Eosinophils 0.1, Absolute Basophils 0 06/18/18 1211: Hemoglobin A1c 5.3, PT 37.2 H, INR 3.37 H, CBC w Diff NO MAN DIFF REQ, RBC 4.48 L, MCV 97.6 H, MCH 32.6 H, MCHC 33.4, RDW 14.9 H, MPV 6.6 L, Gran % 57.9, Lymphocytes % 32.0, Monocytes % 8.0, Eosinophils % 1.6, Basophils % 0.5, Absolute Granulocytes 2.1, Absolute Lymphocytes 1.2, Absolute Monocytes 0.3, Absolute Eosinophils 0.1, Absolute Basophils 0 06/17/18 2334: Urine Color STRAW, Urine Clarity CLEAR, Urine pH 6.0, Ur Specific [place] 1.015, Urine Protein NEG, Urine Ketones NEG, Urine Nitrite NEG, Urine Bilirubin NEG, Urine Urobilinogen 0.2, Ur Leukocyte Esterase NEG, Ur Microscopic EXAM NOT REQUIRED, Urine Hemoglobin NEG, Urine Glucose NEG 06/17/18 2248: Lactic Acid Cancelled 06/17/18 2112: Anion Gap 9, Estimated GFR > 60, BUN/Creatinine Ratio 31.1 H, Glucose 82, Lactic Acid 1.3, Calcium 8.7, Total Bilirubin 0.5, AST 14 L, ALT 14 L, Alkaline Phosphatase 68, Troponin I < 0.01, Total Protein 5.7 L, Albumin 3.0 L , Globulin 2.7, Albumin/Globulin Ratio 1.1, Valproic Acid 50.8 06/17/18 2019: PT 32.1 H, INR 2.91 H, APTT 36, CBC w Diff NO MAN DIFF REQ, RBC 4.98, MCV 96.8 H, MCH 32.5 H, MCHC 33.5, RDW 15.1 H, MPV 6.7 L, Gran % 68.2, Lymphocytes % 24.6, Monocytes % 5.8, Eosinophils % 1.0, Basophils % 0.4, Absolute Granulocytes 3.6, Absolute Lymphocytes 1.3, Absolute Monocytes 0.3, Absolute Eosinophils 0.1, Absolute Basophils 0 Assessment/Plan Assessment: 77 y/o male with a history of AAA (5.6cm x 6cm) for which he is scheduled to have surgery on 06/29/[address] Lau, Seizure disorder, CHF, ANDRIY, and Paroxysmal Atrial Fibrillation for which he is anticoagulated, presents with hip and back pain s/p witnessed mechanical fall by his in their home one week ago as well as BRBPR that the patient observed after a bowel movement on 06/17/18. Patient is being treated for pain management and for monitoring of CBC s/p guaiac positive. Plan: Back Pain Oxycodone/Acetaminophen (5mg/325mg) Q8hr PRN Plan for rehab facility upon discharge from [facility] Seizure Disorder Continue Home Medications Congestive Heart Failure Continue Home Medications ANDRIY Continue Home Medications Paroxysmal Atrial Fibrillation Continue Home Medications AAA Continue Home Medications Scheduled for surgery 06/29/18. Question if surgery will take place earlier. Will f/u with Vascular surgeon, Dr. Lau
--- NOTE | 2018-06-19 12:59 | Patient Discharge Instructions ---
Discharge Instructions General Discharge Information Special Instructions: - Please STOP taking aspirin and wafarin 5 days prior your AAA repair surgery. - Please follow up with your primary care physician within 1-2 weeks of discharge. Inform your primary care physician of this admission to [facility]. - Continue your current medications per discharge instructions. - Please watch for these problems: Fever, Chills, Nausea, Vomiting, Shortness of Breath, Productive Cough, Chest Pain/Discomfort, Abdominal Pain, Active Bleeding or Bloody urine/stool. Diet Continue normal diet: Yes Activity Full Activity/No Limits: Yes Acute Coronary Syndrome Inclusion Criteria At DC or during hospital stay patient has or had the following: ACS DIAGNOSIS No Discharge Core Measures Meds if any: Prescribed or Continued at Discharge Meds if any: NOT Prescribed or Continued at Discharge Congestive Heart Failure Inclusion Criteria At DC or during hospital stay patient has or had the following: CHF DIAGNOSIS No Discharge Core Measures Meds if any: Prescribed or Continued at Discharge Meds if any: NOT Prescribed or Continued at Discharge Cerebrovascular accident Inclusion Criteria At DC or during hospital stay patient has or had the following: CVA/TIA Diagnosis No Discharge Core Measures Meds if any: Prescribed or Continued at Discharge Meds if any: NOT Prescribed or Continued at Discharge Venous thromboembolism Inclusion Criteria VTE Diagnosis No VTE Type NONE VTE Confirmed by (Test) NONE Discharge Core Measures - Per Current guidelines, there needs to be overlap - treatment for the first 5 days of Warfarin therapy. - If discharged on Warfarin prior to 5 days of - overlap therapy, the patient will need to be - assessed for post discharge needs including - *Post discharge parental anticoagulation - *Warfarin and/or parental anticoagulation education - *Follow up date to check INR post discharge At least 5 days overlap therapy as Inpatient No Meds if any: Prescribed or Continued at Discharge Note: Overlap Therapy is Warfarin and Anticoagulant Meds if any: NOT Prescribed or Continued at Discharge
[2018-06-19 14:36] VITALS: BP 104/64
--- NOTE | 2018-06-19 15:28 | Cons- Cardiology ---
General Information and HPI Consulting Request Date of Consult: 06/19/18 Requested By: Julissa Mracano MD Reason for Consult: Abdominal aortic aneurysm; coronary artery disease Source of Information: patient, family, old records Exam Limitations: no limitations History of Present Illness: The patient is a pleasant 77-year-old male who is well-known to me. He has an extended past medical history as noted in the record. He was recently seen by me in the office a few days ago for preoperative clearance prior to upcoming endovascular repair of an aortic aneurysm which is scheduled for 06/29/18. At that time, after extended discussion, we agreed that the patient would be cleared for the endovascular procedure with no further cardiac evaluation necessary in view of his recent cardiac assessment which shows normal left ventricular function, his lack of symptoms, his unchanged examination, and his recent bypass surgery in 2016. The patient is now admitted to the hospital after a fall with gait instability. Patient does have a history of lower extremity edema with unstable gait in the past. There is no evidence of any new acute cardiac issue. Allergies/Medications Allergies: Coded Allergies: NO KNOWN ALLERGIES (05/25/13) Home Med List: Aspirin (Aspirin*) 81 MG TAB.CHEW 1 TAB PO DAILY HEART HEALTH (Reported) Atenolol 25 MG TABLET 1 TAB PO DAILY BLOOD PRESSURE (Reported) Carbidopa/Levodopa (Carbidopa-Levodopa 25-100 Tab) 25 MG-100 MG TABLET 1 TAB PO 12 PM + 5 PM P[place]INSONS (Reported) Carbidopa/Levodopa (Carbidopa-Levo ER 50-200 Tab) 50 MG-200 MG TABLET.ER 1 TAB PO QAM [place] (Reported) Diltiazem HCl (Cardizem) 30 MG TABLET 1 TAB PO DAILY RHYTHM CONTROL (Reported ) Divalproex Sodium (Depakote) 500 MG TABLET.DR 1 TAB PO DAILY SEIZURES ( Reported) Furosemide 40 MG TABLET 1 TAB PO BID FLUID OVERLOAD (Reported) Levetiracetam (Keppra) 500 MG TABLET 2 TAB PO QPM SEIZURE (Reported) Levetiracetam (Keppra) 500 MG TABLET 1 TAB PO QAM SEIZURE (Reported) Levothyroxine Sodium 50 MCG TABLET 1 TAB PO DAILY THYROID (Reported) Mirabegron (Myrbetriq) 25 MG TAB.ER.24H 1 TAB PO QAM BLADDER (Reported) Potassium Chloride (Klor-Con M20) 20 MEQ TAB.ER.PRT 1 TAB PO BID HYPOKALEMIA (Reported) Simvastatin (Simvastatin*) 40 MG TABLET 1 TAB PO QPM HLD (Reported) Tramadol HCl 50 MG TABLET 1 TAB PO DAILY PAIN (Reported) Warfarin Sodium (Coumadin) 2 MG TABLET 1 TAB PO 1700 BLOOD THINNER (Reported) Current Medications: Current Medications Sig/Hilton Start time Last Medication Dose Route Stop Time Status Admin Acetaminophen 650 MG Q8P PRN 06/18 1045 AC PO Aspirin 81 MG DAILY 06/18 1026 AC 06/19 PO 0942 Atenolol 25 MG DAILY 06/18 1027 AC 06/19 PO 0942 Atorvastatin Calcium 20 MG 1700 06/18 1700 AC 06/18 PO 1708 Carbidopa/Levodopa 1 TAB 1200,1700 06/18 1200 AC 06/19 PO 1114 Carbidopa/Levodopa 1 TAB QAM 06/18 1027 AC 06/19 PO 0941 Diltiazem HCl 30 MG DAILY 06/18 1029 AC 06/19 PO 0942 Divalproex Sodium 1,000 MG 2000 06/18 2000 AC 06/18 PO 2035 Divalproex Sodium 500 MG DAILY 06/18 1030 AC 06/19 PO 0942 Furosemide 40 MG BID 06/18 1030 AC 06/19 PO 0941 Levetiracetam 1,000 MG QPM 06/18 2100 AC 06/17 PO 2258 Levetiracetam 500 MG QAM 06/18 1030 AC 06/19 PO 0941 Levothyroxine Sodium 0.05 MG DAILY AC 06/18 1030 AC 06/19 PO 0630 Mirabegron 25 MG DAILY 06/18 1045 AC 06/19 PO 1114 Oxycodone/ 1 TAB Q8P PRN 06/18 1045 AC 06/19 Acetaminophen PO 0904 Patient Medication 1 ED ONE ONE 06/18 1800 DC Teaching ED 06/18 1801 Potassium Chloride 20 MEQ BID 06/18 1031 AC 06/19 PO 0942 Tramadol HCl 50 MG Q6 PRN 06/18 0945 AC 06/19 PO 0424 Warfarin Sodium 2 MG COUMADIN 1700 06/19 1700 AC PO 06/19 2359 Past History Travel History Traveled to [place] past 21 day No Medical History Neurological: TIA, SEIZURE FORGETFULNESS? EENT: NONE Cardiovascular: AFIB, CAD, hypertension, hyperlipidemia, myocardial infarction, PACEMAKE chronic lower extremity edema with known venous insufficiency Respiratory: obstructive sleep apnea Gastrointestinal: NONE Hepatic: NONE Renal: UTI Musculoskeletal: chronic back pain, osteoarthritis, CELLULITIS Psychiatric: NONE DEPRESSION? Endocrine: NONE, HYPOTHYROID Blood Disorders: NONE Cancer(s): NONE TRUSTEE OF ESTATE/Reproductive: NONE Other Medical Hx: seizures, hypertension, status post pacemaker, previous TIA, a history of ischemic heart disease, and a previous ME, obstructive sleep apnea, hypothyroidism, and hyperlipidemia. Surgical History Surgical History: CABG, VEIN STRIPPING RCW PACEMAKER LT WRIST SURGERY(SHAWN) Psychosocial History Where Do You Live? Home Who Do You Live With? spouse Services at Home: None Smoking Status: Never Smoked ETOH Use: denies use Illicit Drug Use: denies illicit drug use Exam & Diagnostic Data Vital Signs and I&O Vital Signs Date Time Temp Pulse Resp B/P B/P Pulse O2 O2 Flow FiO2 Mean Ox Delivery Rate 06/19 1436 97.8 60 20 104/64 90 Room Air 06/19 1431 Room Air 06/19 0942 60 106/72 06/19 0942 60 106/72 06/19 0638 98.4 59 20 125/76 95 Room Air 06/18 2245 97.4 60 20 110/50 97 Room Air Intake & Output 06/19 1600 06/19 0800 06/19 0000 06/18 1600 06/18 0800 06/18 0000 Intake Total 520 396 552 0209 Output Total 200 Balance 520 889 271 0855 Intake, IV 0 Intake, Oral 520 209 324 4705 Number 0 0 Bowel Movements Output, Urine 200 Patient 223 lb 223 lb Weight Weight Reported by Patient Measurement Method Physical Exam: General Appearance: well developed/nourished, alert, awake, oriented Head: normal HEENT: Normal Neck: supple, JVP normal, carotid upstrokes normal bilaterally, no masses or thyromegaly Respiratory: chest non-tender, clear to auscultation and percussion bilaterally Cardiovascular: regular rate/rhythm, normal S1, S2, 1-2/6 systolic murmur Abdomen: normal bowel sounds, soft, non-tender Extremities: normal inspection, 2+ bilateral edema Vascular: Pulses are 2+ and equal bilaterally Neurologic: Grossly normal/nonfocal Labs/Emmanuel Results: Laboratory Tests 06/19 06/19 0851 0608 Chemistry Sodium (137 - 145 mmol/L) 142 Potassium (3.5 - 5.1 mmol/L) 4.6 Chloride (98 - 107 mmol/L) 101 Carbon Dioxide (22 - 30 mmol/L) 33 H Anion Gap (5 - 16) 8 BUN (9 - 20 mg/dL) 23 H Creatinine (0.7 - 1.2 mg/dL) 0.9 Estimated GFR (>60 ml/min) > 60 BUN/Creatinine Ratio (7 - 25 %) 25.6 H Coagulation PT (9.4 - 12.5 SEC) 19.7 H INR (0.90 - 1.17) 1.80 H APTT (25 - 37 SEC) 37 Hematology CBC w Diff NO MAN DIFF REQ WBC (4.8 - 10.8 /CUMM) 4.1 L RBC (4.70 - 6.10 /CUMM) 4.50 L Hgb (14.0 - 18.0 G/DL) 14.9 Hct (42 - 52 %) 44.0 MCV (80.0 - 94.0 FL) 97.6 H MCH (27.0 - 31.0 PG) 33.2 H MCHC (33.0 - 37.0 G/DL) 34.0 RDW (11.5 - 14.5 %) 14.6 H Plt Count (130 - 400 /CUMM) 201 MPV (7.4 - 10.4 FL) 7.1 L Gran % (42.2 - 75.2 %) 53.0 Lymphocytes % (20.5 - 51.1 %) 39.0 Monocytes % (1.7 - 9.3 %) 5.4 Eosinophils % (0 - 5 %) 2.2 Basophils % (0.0 - 2.0 %) 0.4 Absolute Granulocytes (1.4 - 6.5 /CUMM) 2.1 Absolute Lymphocytes (1.2 - 3.4 /CUMM) 1.6 Absolute Monocytes (0.10 - 0.60 /CUMM) 0.2 Absolute Eosinophils (0.0 - 0.7 /CUMM) 0.1 Absolute Basophils (0.0 - 0.2 /CUMM) 0 06/18 06/17 1211 2334 Chemistry Hemoglobin A1c (4.2 - 5.8 %) 5.3 Coagulation PT (9.4 - 12.5 SEC) 37.2 H INR (0.90 - 1.17) 3.37 H Hematology CBC w Diff NO MAN DIFF REQ WBC (4.8 - 10.8 /CUMM) 3.6 L RBC (4.70 - 6.10 /CUMM) 4.48 L Hgb (14.0 - 18.0 G/DL) 14.6 Hct (42 - 52 %) 43.7 MCV (80.0 - 94.0 FL) 97.6 H MCH (27.0 - 31.0 PG) 32.6 H MCHC (33.0 - 37.0 G/DL) 33.4 RDW (11.5 - 14.5 %) 14.9 H Plt Count (130 - 400 /CUMM) 223 MPV (7.4 - 10.4 FL) 6.6 L Gran % (42.2 - 75.2 %) 57.9 Lymphocytes % (20.5 - 51.1 %) 32.0 Monocytes % (1.7 - 9.3 %) 8.0 Eosinophils % (0 - 5 %) 1.6 Basophils % (0.0 - 2.0 %) 0.5 Absolute Granulocytes (1.4 - 6.5 /CUMM) 2.1 Absolute Lymphocytes (1.2 - 3.4 /CUMM) 1.2 Absolute Monocytes (0.10 - 0.60 /CUMM) 0.3 Absolute Eosinophils (0.0 - 0.7 /CUMM) 0.1 Absolute Basophils (0.0 - 0.2 /CUMM) 0 Urines Urine Color (YEL,AMB,STR) STRAW Urine Clarity (CLEAR) CLEAR Urine pH (5.0 - 8.0) 6.0 Ur Specific [place] (1.001 - 1.035) 1.015 Urine Protein (NEG,<30 MG/DL) NEG Urine Ketones (NEG) NEG Urine Nitrite (NEG) NEG Urine Bilirubin (NEG) NEG Urine Urobilinogen (0.1 - 1.0 EU/dl) 0.2 Ur Leukocyte Esterase (NEG) NEG Ur Microscopic EXAM NOT REQUIRED Urine Hemoglobin (NEG) NEG Urine Glucose (N MG/DL) NEG 06/17 Chemistry Sodium (137 - 145 mmol/L) 139 Potassium (3.5 - 5.1 mmol/L) 4.6 Chloride (98 - 107 mmol/L) 100 Carbon Dioxide (22 - 30 mmol/L) 31 H Anion Gap (5 - 16) 9 BUN (9 - 20 mg/dL) 28 H Creatinine (0.7 - 1.2 mg/dL) 0.9 Estimated GFR (>60 ml/min) > 60 BUN/Creatinine Ratio (7 - 25 %) 31.1 H Glucose (65 - 99 mg/dL) 82 Lactic Acid (0.7 - 2.1 mmol/L) Cancelled 1.3 Calcium (8.4 - 10.2 mg/dL) 8.7 Total Bilirubin (0.2 - 1.3 mg/dL) 0.5 AST (17 - 59 U/L) 14 L ALT (21 - 72 U/L) 14 L Alkaline Phosphatase (< 127 U/L) 68 Troponin I (<0.11 ng/ml) < 0.01 Total Protein (6.3 - 8.2 g/dL) 5.7 L Albumin (3.5 - 5.0 g/dL) 3.0 L Globulin (1.9 - 4.2 gm/dL) 2.7 Albumin/Globulin Ratio (1.1 - 2.2 %) 1.1 Coagulation PT (9.4 - 12.5 SEC) 32.1 H INR (0.90 - 1.17) 2.91 H APTT (25 - 37 SEC) 36 Hematology CBC w Diff NO MAN DIFF REQ WBC (4.8 - 10.8 /CUMM) 5.2 RBC (4.70 - 6.10 /CUMM) 4.98 Hgb (14.0 - 18.0 G/DL) 16.2 Hct (42 - 52 %) 48.2 MCV (80.0 - 94.0 FL) 96.8 H MCH (27.0 - 31.0 PG) 32.5 H MCHC (33.0 - 37.0 G/DL) 33.5 RDW (11.5 - 14.5 %) 15.1 H Plt Count (130 - 400 /CUMM) 224 MPV (7.4 - 10.4 FL) 6.7 L Gran % (42.2 - 75.2 %) 68.2 Lymphocytes % (20.5 - 51.1 %) 24.6 Monocytes % (1.7 - 9.3 %) 5.8 Eosinophils % (0 - 5 %) 1.0 Basophils % (0.0 - 2.0 %) 0.4 Absolute Granulocytes (1.4 - 6.5 /CUMM) 3.6 Absolute Lymphocytes (1.2 - 3.4 /CUMM) 1.3 Absolute Monocytes (0.10 - 0.60 /CUMM) 0.3 Absolute Eosinophils (0.0 - 0.7 /CUMM) 0.1 Absolute Basophils (0.0 - 0.2 /CUMM) 0 Toxicology Valproic Acid (50 - 120 ug/mL) 50.8 Diagnostic Data Other Results Chest CT: IMPRESSION: 1. An injury secondary to the patient's fall causing back pain has not been found. 2. Incidental note is made of: right simple renal cyst, small hiatal hernia, colonic diverticulosis, large infrarenal abdominal aortic aneurysm, high density area on the left of the prostate. 3. An unchanged compression fracture of L1 with multiple previous redemonstrated vertebrae treated with kyphoplasty. Assessment/Plan Assessment/Plan Assessment: 1. Mechanical fall 2. Abdominal aortic aneurysm, pending endovascular repair on 06/29/18 3. History of coronary artery disease, status post bypass surgery 2015 4. History of paroxysmal atrial ablation on warfarin 5. History of sick sinus syndrome, status post permanent pacemaker 6. Chronic lower extremity edema with venous insufficiency, status post venous closure procedures 7. Hypothyroidism 8. Probable sleep apnea Recommendations: -Continue as per the medical team -As noted previously, the patient is cleared for his upcoming endovascular repair of AAA on with Dr. Yancey -Follow-up with me has been scheduled later as an outpatient. -Continue regular medications. -Anticoagulation to be discontinued prior to the surgical procedure as discussed with the patient and family. Consult Acknowledgment - Thank you for your consult request.
[2018-06-19 23:22] VITALS: BP 110/60
[2018-06-20 02:24] VITALS: BP 104/72
[2018-06-20 06:02] VITALS: BP 106/72
[2018-06-20 08:31] LABS: ABSOLUTE BASOPHIL COUNT 0 /CUMM (0.0-0.2); ABSOLUTE EOSINOPHIL COUNT 0.1 /CUMM (0.0-0.7); ABSOLUTE GRANULOCYTE CT 2.7 /CUMM (1.4-6.5); ABSOLUTE LYMPH COUNT 1.6 /CUMM (1.2-3.4); ABSOLUTE MONOCYTE COUNT 0.3 /CUMM (0.10-0.60); BASOPHIL % 0.5 % (0.0-2.0); HEMATOCRIT 44.9 % (42-52); MEAN CORPUSCULAR HGB 32.8 PG (27.0-31.0); MEAN CORPUSCULAR HGB CONC 33.8 G/DL (33.0-37.0); MEAN CORPUSCULAR VOLUME 97.2 FL (80.0-94.0); MEAN PLATELET VOLUME 6.9 FL (7.4-10.4); PLATELET COUNT 212 /CUMM (130-400); RBC DISTRIBUTION WIDTH 14.5 % (11.5-14.5); RED BLOOD CELL CT 4.62 /CUMM (4.70-6.10); WHITE BLOOD CELL COUNT 4.7 /CUMM (4.8-10.8)
--- NOTE | 2018-06-20 08:39 | PN- Housestaff ---
Carolynn STEVENS,Shemar 06/20/18 0838: Subjective Follow-up For: Status post mechanical fall Complaints: complaining of pain in the back and doesn't want to work with physical therapy Subjective: Patient is seen and examined at the bedside. He was complaining of pain in the back. According to the . He doesn't want to work with the physical therapy. He was sleepy at the time of examination. His both lower legs were swollen. Discussed with the . She wanted Medrol Dosepak again because it help her with the back pain. Review of Systems Constitutional: Reports: no symptoms. Musculoskeletal: Reports: back pain. Objective Last 24 Hrs of Vital Signs/I&O Vital Signs Date Time Temp Pulse Resp B/P B/P Pulse O2 O2 Flow FiO2 Mean Ox Delivery Rate 06/20 0758 59 106/72 06/20 0757 59 106/72 06/20 0602 97.6 59 20 106/72 95 06/20 0224 97.5 58 20 104/72 93 06/19 2322 97.4 60 18 110/60 96 06/19 1436 97.8 60 20 104/64 90 Room Air 06/19 1431 Room Air 06/19 0942 60 106/72 06/19 0942 60 106/72 Intake & Output 06/20 1600 06/20 0800 06/20 0000 Intake Total 120 120 Output Total 200 Balance 120 -80 Intake, Oral 120 120 Output, Urine 200 Physical Exam General Appearance: Alert, Oriented X3, Cooperative, No Acute Distress Skin: bilateral lower leg swelling and erythema HEENT: Atraumatic, PERRLA, EOMI Neck: No JVD Cardiovascular: Normal S1, Normal S2 Lungs: Clear to Auscultation, Normal Air Movement Abdomen: Soft, No Tenderness Current Medications: Current Medications Sig/Hilton Start time Last Medication Dose Route Stop Time Status Admin Acetaminophen 650 MG Q8P PRN 06/18 1045 AC PO Aspirin 81 MG DAILY 06/18 1026 AC 06/20 PO 0758 Atenolol 25 MG DAILY 06/18 1027 AC 06/20 PO 0757 Atorvastatin Calcium 20 MG 1700 06/18 1700 AC 06/19 PO 1746 Carbidopa/Levodopa 1 TAB 1200,1700 06/18 1200 AC 06/19 PO 1746 Carbidopa/Levodopa 1 TAB QAM 06/18 1027 AC 06/20 PO 0759 Diltiazem HCl 30 MG DAILY 06/18 1029 AC 06/20 PO 075 Divalproex Sodium 1,000 MG 2000 06/18 2000 AC 06/19 PO 2003 Divalproex Sodium 500 MG DAILY 06/18 1030 AC 06/20 PO 0758 Furosemide 40 MG BID 06/18 1030 AC 06/20 PO 075 Levetiracetam 1,000 MG QPM 06/18 2100 AC 06/19 PO 211 Levetiracetam 500 MG QAM 06/18 1030 AC 06/20 PO 0758 Levothyroxine Sodium 0.05 MG DAILY AC 06/18 1030 AC 06/20 PO 0508 Mirabegron 25 MG DAILY 06/18 1045 AC 06/20 PO 075 Oxycodone/ 1 TAB Q8P PRN 06/18 1045 AC 06/19 Acetaminophen PO 2003 Patient Medication 1 ED ONE ONE 06/19 1600 DC 06/19 Teaching ED 06/19 1601 1600 Potassium Chloride 20 MEQ BID 06/18 1031 AC 06/20 PO 0758 Tramadol HCl 50 MG Q6 PRN 06/18 0945 AC 06/20 PO 0508 Warfarin Sodium 2 MG COUMADIN 1700 06/19 1700 DC 06/19 PO 06/19 2359 1746 Last 24 Hrs of Lab/Emmanuel Results Last 24 Hrs of Labs/Mics: Laboratory Tests 06/20/18 0650: PT 20.3 H, INR 1.85 H, CBC w Diff NO MAN DIFF REQ, RBC 4.62 L, MCV 97.2 H, MCH 32.8 H, MCHC 33.8, RDW 14.5, MPV 6.9 L, Gran % 58.0, Lymphocytes % 33.7, Monocytes % 5.8, Eosinophils % 2.0, Basophils % 0.5, Absolute Granulocytes 2.7, Absolute Lymphocytes 1.6, Absolute Monocytes 0.3, Absolute Eosinophils 0.1, Absolute Basophils 0 Assessment/Plan Assessment: Mr Houston is a 77yo male with a history of AAA (5.6cm x 6cm) for which he is scheduled to have surgery on 06/29/[address] Lau, Seizure disorder, CHF, ANDRIY, and Paroxysmal Atrial Fibrillation for which he is on coumadin, presents with hip and back pain s/p witnessed mechanical fall by his in their home one week ago as well as BRBPR gauic positive, admitted for stable GI bleed and pain control. Vital signs - Assessment and plan - * Denies for any active bleeding, hemoglobin stable to 15.2, we will recheck CBC and BEP tomorrow. * PT/INR is 1.85. We will increase the dose of Coumadin to 3 milligrams and repeat the PT/INR tomorrow and watch for the bleeding. * We will continue the pain medication as before * He did not had bowel movement, so was started on bowel regimen. * We'll follow the attending note. Problem List: 1. Unable to ambulate 2. Weakness 3. Low back pain Pain Ratin Pain Location: Back Pain Goal: Remain pain free Pain Plan: Pain medication according to the pain scale Tomorrow's Labs & Rationales: CBC, BEP, PT/INR for follow-up Amado STEVENS,Amir 06/20/18 1429: Attending Review Statement Attending Statement Attending MD Statement: examined this patient, discuss w/resident/PA/CRIMINAL COURT JUDGE, agreed w/resident/PA/CRIMINAL COURT JUDGE, discussed with family, reviewed EMR data (avail), discussed with nursing Attending Assessment/Plan: Pt was seen and evaluated. Chart reviewed. No BM yet. HCT stable. Plan for d/ c to STR.
[2018-06-20 08:45] LABS: PT 20.3 SEC (9.4-12.5)
[2018-06-20 14:29] VITALS: BP 90/55
[2018-06-20 21:44] VITALS: BP 100/68
[2018-06-21 06:23] VITALS: BP 102/62
[2018-06-21 08:29] LABS: ABSOLUTE BASOPHIL COUNT 0 /CUMM (0.0-0.2); ABSOLUTE EOSINOPHIL COUNT 0.1 /CUMM (0.0-0.7); ABSOLUTE GRANULOCYTE CT 2.8 /CUMM (1.4-6.5); ABSOLUTE LYMPH COUNT 1.6 /CUMM (1.2-3.4); ABSOLUTE MONOCYTE COUNT 0.3 /CUMM (0.10-0.60); BASOPHIL % 0.3 % (0.0-2.0); EOSINOPHIL % 1.5 % (0-5); GRANULOCYTE % 58.3 % (42.2-75.2); HEMATOCRIT 42.9 % (42-52); MEAN CORPUSCULAR HGB 33.1 PG (27.0-31.0); MEAN CORPUSCULAR HGB CONC 34.1 G/DL (33.0-37.0); MEAN CORPUSCULAR VOLUME 96.9 FL (80.0-94.0); MEAN PLATELET VOLUME 6.7 FL (7.4-10.4); PLATELET COUNT 225 /CUMM (130-400); RBC DISTRIBUTION WIDTH 14.1 % (11.5-14.5); RED BLOOD CELL CT 4.43 /CUMM (4.70-6.10); WHITE BLOOD CELL COUNT 4.8 /CUMM (4.8-10.8)
[2018-06-21 09:01] LABS: PT 27.4 SEC (9.4-12.5)
--- NOTE | 2018-06-21 09:35 | PN- Housestaff ---
See Addendum Subjective Follow-up For: Mechanical Weakness, GI Bleed, AAA Subjective: Patient seen and examined at bedside. Pt denies states that he still in pain, although did just receive pain medication, which helped the pain to the hip a bit. Patient states that he is ready to go to rehab today. Denies fevers/chills /night sweats/chest pain/abdominal pain/urinary symptoms Review of Systems Constitutional: Reports: see HPI. Objective Last 24 Hrs of Vital Signs/I&O Vital Signs Date Time Temp Pulse Resp B/P B/P Pulse O2 O2 Flow FiO2 Mean Ox Delivery Rate 06/21 0848 60 102/62 06/21 0847 60 102/62 06/21 0623 97.8 60 20 102/62 91 06/20 2144 98.4 61 20 100/68 93 Room Air 06/20 1429 97.9 67 20 90/55 91 Room Air Intake & Output 06/21 1600 06/21 0800 06/21 0000 Intake Total 240 240 Output Total Balance 240 240 Intake, Oral 240 240 Physical Exam General Appearance: Alert, Oriented X3, Cooperative, No Acute Distress Skin: No Rashes Skin Temp/Moisture Exam: Warm/Dry Cardiovascular: Regular Rate, Normal S1, Normal S2 Lungs: Clear to Auscultation, Normal Air Movement Abdomen: Soft, No Tenderness Neurological: Normal Speech, Strength at 5/5 X4 Ext Extremities: 2+ b/l edema Current Medications: Current Medications Sig/Hilton Start time Last Medication Dose Route Stop Time Status Admin Acetaminophen 650 MG Q8P PRN 06/18 1045 AC PO Aspirin 81 MG DAILY 06/18 1026 AC 06/21 PO 0847 Atenolol 25 MG DAILY 06/18 1027 AC 06/21 PO 0847 Atorvastatin Calcium 20 MG 06/18 1700 AC 06/20 PO 1754 Bisacodyl 5 MG DAILY 06/20 0935 AC 06/21 PO 0847 Carbidopa/Levodopa 1 TAB 1200,1700 06/18 1200 AC 06/20 PO 1754 Carbidopa/Levodopa 1 TAB QAM 06/18 1027 AC 06/21 PO 0847 Diltiazem HCl 30 MG DAILY 06/18 1029 AC 06/21 PO 0848 Divalproex Sodium 1,000 MG 06/18 AC 06/20 PO 1948 Divalproex Sodium 500 MG DAILY 06/18 1030 AC 06/21 PO 0847 Furosemide 40 MG BID 06/18 1030 AC 06/21 PO 0847 Levetiracetam 1,000 MG QPM 06/18 2100 AC 06/20 PO 1948 Levetiracetam 500 MG QAM 06/18 1030 AC 06/21 PO 0847 Levothyroxine Sodium 0.05 MG DAILY AC 06/18 1030 AC 06/21 PO 0513 Mirabegron 25 MG DAILY 06/18 1045 AC 06/21 PO 0848 Oxycodone/ 1 TAB Q8P PRN 06/18 1045 AC 06/21 Acetaminophen PO 0227 Polyethylene Glycol 17 GM DAILY 06/20 0935 AC 06/21 PO 0848 Potassium Chloride 20 MEQ BID 06/18 1031 AC 06/21 PO 0847 Tramadol HCl 50 MG Q6 PRN 06/18 0945 AC 06/20 PO 0508 Warfarin Sodium 3 MG COUMADIN 1700 ONE 06/20 1700 DC 06/20 PO 06/20 1701 1754 Last 24 Hrs of Lab/Emmanuel Results Last 24 Hrs of Labs/Mics: Laboratory Tests 06/21/18 0750: Anion Gap 10, Estimated GFR > 60, BUN/Creatinine Ratio 23.6, PT 27.4 H, INR 2.49 H, CBC w Diff NO MAN DIFF REQ, RBC 4.43 L, MCV 96.9 H, MCH 33.1 H, MCHC 34.1, RDW 14.1, MPV 6.7 L, Gran % 58.3, Lymphocytes % 33.5, Monocytes % 6.4, Eosinophils % 1.5, Basophils % 0.3, Absolute Granulocytes 2.8, Absolute Lymphocytes 1.6, Absolute Monocytes 0.3, Absolute Eosinophils 0.1, Absolute Basophils 0 Assessment/Plan Assessment: Mr Houston is a 77yo male with a history of AAA (5.6cm x 6cm) for which he is scheduled to have surgery on 06/29/[address] Lau, Seizure disorder, CHF, ANDRIY, and Paroxysmal Atrial Fibrillation for which he is on coumadin, presents with hip and back pain s/p witnessed mechanical fall by his in their home one week ago as well as BRBPR gauic positive, admitted for stable GI bleed and pain control #GI Bleed - BRBPR, Guaic +; stable, resolving -Hemoglobin normal. Upon admission 16.2-->14.6-->14.9->15.2->14.6 today. -Denies any recent BRBPR -Transfuse if <8; low threshold for GI consult #Low Back Pain -On pain control regimen. Currently moderately controlled per patient. -Has had functional decline recently s/p mechanical fall. Normally ambulates with walker, single axis cane -CT Abd/Pelvis neg for trauma -PT Consult appreciated. Recommend STR; case management on board. #AAAstable -Stable, per CT scan, no physical exam findings -To go for surgery on 06/29 #Seizure D/o -Depakote level therapeutic. Will continue with home meds #A-Fib -INR therapeutic at 2.49 today. Was given 3mg of coumadin last night. -Cardiology input appreciated. Will follow up with him outpatient #CHF -Cw home medications IV Access DVT Ppx Heart Healthy Diet Full Code Dispo - to STR Problem List: 1. Weakness 2. Unable to ambulate 3. Low back pain Pain Ratin Pain Location: back, hip Pain Goal: Pain 7 or less Pain Plan: pathway Tomorrow's Labs & Rationales: INR
[2018-06-21 15:02] VITALS: BP 95/58
[2018-06-21 17:15] VITALS: BP 95/58
== END 2018-06-21 21:28 | DRG 552 ==
LOC: ERH 18:06 → ERHI 06-18 08:57 → 2NB 06-18 08:57 → ENRESERV 06-18 09:09 → ENTRNSPT 06-18 09:58 → 2NB 06-18 10:00 → EDTRNSPTSTS 06-18 10:10 → EDTRNSPT 06-18 10:10 → CMPTRNSPT 06-18 10:20 → 2NB 06-21 21:28
PROVIDERS: Internal Medicine; Internal Medicine Adolescent Medicine; Physical Medicine & Rehabilitation; Physician Assistant
DX: M54.9 Dorsalgia, unspecified (principal); G20 Parkinson's disease; Z79.01 Long term (current) use of anticoagulants; I11.0 Hypertensive heart disease with heart failure; I50.9 Heart failure, unspecified; I87.2 Venous insufficiency (chronic) (peripheral); E03.9 Hypothyroidism, unspecified; Z95.1 Presence of aortocoronary bypass graft; G40.909 Epilepsy, unspecified, not intractable, without status epilepticus; I71.4 Abdominal aortic aneurysm, without rupture; I25.2 Old myocardial infarction; Z95.0 Presence of cardiac pacemaker; G47.33 Obstructive sleep apnea (adult) (pediatric); E78.5 Hyperlipidemia, unspecified; F32.9 Major depressive disorder, single episode, unspecified; Z86.73 Personal history of transient ischemic attack (TIA), and cerebral infarction without residual deficits; W18.30XA Fall on same level, unspecified, initial encounter; Y92.007 Garden or yard of unspecified non-institutional (private) residence as the place of occurrence of the external cause; I48.0 Paroxysmal atrial fibrillation; I25.10 Atherosclerotic heart disease of native coronary artery without angina pectoris
CPT/HCPCS: 2NSBP; 36415; 36592; 73502-RT; 74176; 81003; 82436; 93005; 93010; 97110-GO; 97116-GO; 97161-GP; 97530-GO; J0131; J3490

== ENCOUNTER 2018-06-29 02:39 | Inpatient (IN) | payer OTHER, MEDICARE ==
[~2018-06-29] VITALS: Ht 172.7 cm; Wt 97.6 kg
[~2018-06-29 02:39] MED LIST changes: +CARBIDOPA-LEVO1 EAC7 PO; +CARBIDOPA-LEVO1 EAC9 PO; +LEVOTHYROXINE50 MCG PO; +MYRBETRIQ25 M1 PO
[2018-06-29 08:32] LABS: PT 12.8 SEC (9.4-12.5)
[2018-07-03 06:28] LABS: PT 12.2 SEC (9.4-12.5)
--- NOTE | 2018-07-03 08:52 | Patient Discharge Instructions ---
Discharge Instructions General Discharge Information You were seen/treated for: infrarenal abdominal aortic aneurysm You had these procedures: endovascular repair abdominal aortic aneurysm (07/03/18) Watch for these problems: fever>101.3, increased pain, redness/swelling/drainage, dizziness, shortness of breath, chest pains No bath, but you may shower: Yes Other wound care: ok to remove dressings. keep incisions clean & dry. ok to shower, but no bathing / pools. Diet Continue normal diet: Yes Recommended Diet: Heart Healthy Activity Full Activity/No Limits: No Activity Self Limited: Yes Pounds, do NOT lift more than: 10 Other activity limits: no heavy lifting. no strenuous activity. Acute Coronary Syndrome Inclusion Criteria At DC or during hospital stay patient has or had the following: ACS DIAGNOSIS No Discharge Core Measures Meds if any: Prescribed or Continued at Discharge Meds if any: NOT Prescribed or Continued at Discharge Congestive Heart Failure Inclusion Criteria At DC or during hospital stay patient has or had the following: CHF DIAGNOSIS No Discharge Core Measures Meds if any: Prescribed or Continued at Discharge Meds if any: NOT Prescribed or Continued at Discharge Cerebrovascular accident Inclusion Criteria At DC or during hospital stay patient has or had the following: CVA/TIA Diagnosis No Discharge Core Measures Meds if any: Prescribed or Continued at Discharge Meds if any: NOT Prescribed or Continued at Discharge Venous thromboembolism Inclusion Criteria VTE Diagnosis No VTE Type NONE VTE Confirmed by (Test) NONE Discharge Core Measures - Per Current guidelines, there needs to be overlap - treatment for the first 5 days of Warfarin therapy. - If discharged on Warfarin prior to 5 days of - overlap therapy, the patient will need to be - assessed for post discharge needs including - *Post discharge parental anticoagulation - *Warfarin and/or parental anticoagulation education - *Follow up date to check INR post discharge At least 5 days overlap therapy as Inpatient No Meds if any: Prescribed or Continued at Discharge Note: Overlap Therapy is Warfarin and Anticoagulant Meds if any: NOT Prescribed or Continued at Discharge
--- NOTE | 2018-07-03 08:56 | Admission Core Measures ---
Acute Coronary Syndrome (CM) ACS Core Measures Acute Coronary Syndrome Diagnosis No Congestive Heart Failure (NEW) CHF Core Measures Congestive Heart Failure Diagnosis No Cerebrovascular Accident CVA Core Measures CVA/TIA Diagnosis No Venous Thromboembolism VTE Core Sanju (View Protocol) VTE Risk Factors Surgery No Mechanical VTE Prophylaxis d/t N/A MechProphylax Ordered No VTE Pharm Prophylaxis d/t NA PharmProphylax ordered Problem List As ranked by this Provider includes Assessment & Plan 1. History of endovascular stent graft for abdominal aortic aneurysm (AAA) 2. Abdominal aortic aneurysm 3. Paroxysmal A-fib 4. Sleep apnea 5. Hypertension HOME MEDS Home Med List Aspirin (Aspirin*) 81 MG TAB.CHEW 1 TAB PO DAILY HEART HEALTH (Reported) Atenolol 25 MG TABLET 1 TAB PO DAILY BLOOD PRESSURE (Reported) Carbidopa/Levodopa (Carbidopa-Levo ER 50-200 Tab) 50 MG-200 MG TABLET.ER 1 TAB PO QAM PARKINSONS (Reported) Carbidopa/Levodopa (Carbidopa-Levodopa 25-100 Tab) 25 MG-100 MG TABLET 1 TAB PO 12 PM + 5 PM PARKINSONS (Reported) Diltiazem HCl (Cardizem) 30 MG TABLET 1 TAB PO DAILY RHYTHM CONTROL (Reported ) Divalproex Sodium (Depakote) 500 MG TABLET.DR 1 TAB PO DAILY SEIZURES ( Reported) Furosemide 40 MG TABLET 1 TAB PO BID FLUID OVERLOAD (Reported) Levetiracetam (Keppra) 500 MG TABLET 2 TAB PO QPM SEIZURE (Reported) Levetiracetam (Keppra) 500 MG TABLET 1 TAB PO QAM SEIZURE (Reported) Levothyroxine Sodium 50 MCG TABLET 1 TAB PO DAILY THYROID (Reported) Mirabegron (Myrbetriq) 25 MG TAB.ER.24H 1 TAB PO QAM BLADDER (Reported) Potassium Chloride (Klor-Con M20) 20 MEQ TAB.ER.PRT 1 TAB PO BID HYPOKALEMIA (Reported) Sennosides (Senna) 8.6 MG TABLET 2 TAB PO DAILY constipation (Reported) Simvastatin (Simvastatin*) 40 MG TABLET 1 TAB PO QPM HLD (Reported) Tramadol HCl 50 MG TABLET 1 TAB PO DAILY PAIN (Reported) Warfarin Sodium (Coumadin) 2 MG TABLET 1 TAB PO 1700 BLOOD THINNER (Reported)
--- NOTE | 2018-07-03 09:00 | Surg Short-stay <48hrs Dis Sum ---
Visit Information Visit Dates Admission Date: 07/03/18 Discharge Date: 07/04/18 Surgical Short Stay DC Summary Admission Diagnosis: infrarenal abdominal aortic aneurysm Final Diagnosis: infrarenal abdominal aortic aneurysm s/p endovascular repair aaa (07/03/18) Procedure(s): endovascular repair abdominal aortic aneurysm (07/03/18) Summary/Significant Findings: Electively schedule endovascular repair infra-renal abdominal aortic aneurysm () by . Monitored in ICU post-operatively for neurovascular checks and blood pressure monitoring overnight. Anticoagulation with coumadin held pre-op, resumed post-op day#1, to be continued when discharged back [facility]. His post-op labs are stable, chest xray negative, and vitals stable. Oxygen may be continued to wean as able, and his lasix was restarted post-op day#1 morning. Condition at Discharge: stable Discharge Disposition: [facility] Discharge instructions provided to patient/family: Yes Post discharge follow-up plan: one week follow up with resume coumadin Copies to: Ben Santamaria MD
--- NOTE | 2018-07-03 12:09 | RADIOLOGY REPORT ---
EXAMINATION: Intraoperative fluoroscopy CLINICAL INFORMATION: Endoscopic aortic stent grafting COMPARISON: CT abdomen pelvis 06/17/2018 TECHNIQUE: Intraoperative fluoroscopy was provided for use by Dr. Lopez. A total of 9 images were saved to PACS. TOTAL FLUOROSCOPIC TIME: 13 minutes and 57 seconds FINDINGS\E\IMPRESSION: Intraoperative fluoroscopy provided for use by Dr. Lopez. Please see operative note for detailed findings.
--- NOTE | 2018-07-03 14:24 | PN- Student ---
ShanEllie 07/03/18 1415: Subjective Subjective: Saw pt this afternoon in the unit after his surgery. The pt is doing well and is not in any pain at this time. His only complaint is that he feels dehydrated but hadn't eaten yet. He was tolerating sips of gaby saul. No rowland, pt is due to void. No bm/flatus yet. Pt denies n/v, sob, cp. Objective Objective: Physical Exam Gen: O&Ax3, laying comfortably in bed, in no apparent distress Lungs: CTA Heart: s1 and s2 normal. RRR Abd: normoactive bs, soft, distended, nontender Ext: dressing dry/intact/clear, no inguinal edema, some left posterior calf pain , extremities are dry, cold to touch, pulses barely palpable bilaterally, no lower extremity edema Results Results: Laboratory Tests 07/03/18 0615: PT 12.2, INR 1.12 Microbiology Date/Time Procedure - Status Source Growth 07/03 1200 Surveillance Culture - RECD UPPER RESP 07/03 1200 Surveillance Culture - RECD GI 07/03 08 Urine Culture - RES URINE OR Orders Procedure Date/time Status CBC WITHOUT DIFFERENTIAL 07/04 0500 Active BASIC ELECTROLYTES PLUS BUN&CR 07/04 0500 Active Regular Diet 07/03 D Active Pathway - chart 07/03 1242 Active Admit to inpatient 07/03 1242 Active Patient Data 07/03 1242 Active VTE Mechanical Prophylaxis 07/03 1242 Active Vital Signs 07/03 1242 Active Nursing Misc 07/03 1242 Active Intake & Output 07/03 1242 Active Activity/Ambulation 07/03 1242 Active TRANSFER ORDERS 07/03 1056 Complete Code Status 07/03 1047 Active VRE ACTIVE SURVIELLANCE 07/03 1043 Active ACTIVE SURVEILLANCE NARES 07/03 1043 Active URINE COLLECTION FROM OR 07/03 0800 Active PROTHROMBIN TIME 07/03 0615 Complete SOCIAL WORK CONSULT 07/03 UNK Active Laboratory Tests 07/03/18 0615: PT 12.2, INR 1.12 Microbiology 07/03 1200 UPPER RESP: Surveillance Culture - RECD 07/03 1200 GI: Surveillance Culture - RECD 07/03 08 URINE OR: Urine Culture - RES Assessment/Plan Assessment: Pt is a 77 yo male with an extensive PMHx that is POD 0 s/p endovascular abdominal aortic aneurysm repair. Plan: -C/w regular diet as tolerated -Encourage po intake -Awaiting void, will monitor -Bed precautions for 24 hours -monitor incision sites for signs of bleeding -AM labs (CBC, BMP) -Pt will likely discharge tomorrow if stable and progressing -Resume ambulation 24 hrs post op -Resume aspirin tomorrow for dvt ppx -Frequent neurovascular checks Marj Holliday 07/03/18 1633: Assessment/Plan Plan: agree with above PA-S note groin dressings c/d/i. no hematoma noted dopplerable dp/pt signals b/l feet chronic venous stasis / edema noted b/l from SNF, which they anticipate need for transfer back to SNF tomorrow will order PT eval and case management to assist to d/w
--- NOTE | 2018-07-03 15:50 | Operative Report ---
Operative/Inv Procedure Report Surgery Date: 07/03/18 Name of Procedure: -ULTRASOUND-GUIDED BILATERAL COMMON FEMORAL ARTERY ACCESS -ENDOVASCULAR REPAIR OF INFRARENL ABDOMINAL AORTIC ANEURYSM WITH THE MAIN BODY MEASURING 28.5mm X 14.5mm X 14cm and left contra with 23 mm x 14 cm limb Pre-Operative Diagnosis: Asymptomatic Infrarenal abdominal aortic aneurysm Post-Operative Diagnosis: Same Estimated Blood Loss: scant Surgeon/R D Engineer: John STEVENS,Maverick/Kasi STEVENS, Yong Anesthesia: general endotracheal tube Operative/Procedure Note Note: Patient Was referred for a 5.9 cm infrarenal abdominal aortic aneurysm. CTA showed that his anatomy was suitable for endovascular repair of abdominal aortic aneurysm. Nature of the procedure including its possible complications which included bilateral limited to bleeding, infection, blood clots, heart attack, stroke, need to convert to open and possible re-intervention were discussed. An informed consent was obtained. Patient was taken to the operating room and placed supine on the table. A timeout was called according to protocol. After satisfactory induction of anesthesia the Hinkle catheter was placed. Preoperative antibiotic with 2 g of Ancef had been started. The patient was then prepped and draped in standard surgical fashion. Using an ultrasound, bilateral common femoral arteries were accessed using micropuncture technique. 2 Perclose devices were placed in each groin. From the left side, a marked pigtail catheter was advanced over the wire and placed at the L1 level. From this position, an aortogram was performed and renal arteries were marked. On the right side, The Limon wire was exchanged with Lunderquist wire Using a glide catheter. Then a retrograde shot through the left sheath was also perform and left hypogastric artery was marked on the screen. 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 Then the sheath on the right side was exchanged with an 18 Polish sheath which was advanced over the Lunderquist wire under direct for scopic guidance. The main body measuring 28.5mm x 14.5 mm x 14cm was advanced through the sheath under direct fluoroscopic guidance and deployed just below the right renal which was the lower one. The deployment of the main body was as planned and did not need to be moved thereafter. From the left side, The contra gate was cannulated with a soft Glidewire and 5 Polish angled glide catheter. a pigtail catheter was then advanced over the wire on the left side. On removal of the wire and the pigtail was reformed and was brought back into the proximal main body and was turned to make sure were intraluminal. Then the Lunderquist was then advanced into the pigtail and the contralateral limb measuring 23 mm x 14 cm Was advanced through the 14 Polish sheath and deployed just proximal to the left hypogastric artery. The left limb, and to the left common iliac aneurysm and seal was obtained. Using a compliant balloon, the proximal, the overlap, and bilateral distal seals zones were angioplastied. Completion angiogram was performed which showed a late small type II endoleak. Then bilateral groins were closed using the Perclose devices. 5 minutes of manual pressure was applied to each groin. Sterile dressing was applied. Patient was awakened and had bilateral dorsalis pedis and posterior tibial signals. He was then taken to the PACU in stable condition.
[2018-07-03 16:00] VITALS: BP 98/60
[2018-07-04] VITALS: BP 98/52
--- NOTE | 2018-07-04 05:17 | PN- Vascular Surgery ---
Subjective Subjective: Patient seen and evaluated. No acute events overnight. Reports minimal right lower quadrant and groin pain. Still on bed precautions. Ate dinner without problems. resting comfortably in bed. Remains on 2L NC and saturation in mid 90s. Otherwise HD stable. No cp, sob, palpitations, n/v, fever/chills. Objective Vital Signs and I&Os Vital Signs Date Time Temp Pulse Resp B/P B/P Pulse O2 O2 Flow FiO2 Mean Ox Delivery Rate 07/04 0400 92 Nasal 3.0L Cannula 07/04 0000 97.1 60 18 98/52 97 Nasal 3.0L Cannula 07/04 0000 94 Nasal 3.0L Cannula 07/03 2000 98 Nasal 3.0L Cannula 07/03 1600 97 Nasal 3.0L Cannula 07/03 1600 96.6 60 20 98/60 97 Nasal 3.0L Cannula 07/03 1200 98 Nasal 2.0L Cannula Intake & Output 07/04 0800 07/04 0000 07/03 1600 07/03 0800 07/03 0000 07/02 1600 Intake Total 1080 740 Output Total 100 140 Balance 980 600 Intake, IV 600 300 Intake, Oral 480 440 Number 0 Bowel Movements Output, Urine 100 140 Patient 215 lb Weight Weight Bed scale Measurement Method Physical Exam: Gen: elderly male, laying comfortably in bed, in no apparent distress Lungs: CTA Heart: RRR Abd: normoactive bs, soft, distended, mild right inguinal region tenderness Ext: groin dressings with some ss saturation, thigh compartments are soft, chronic edema of bl LE that is slightly painful with palpation, extremities are dry, cold to touch, good signals in bl DP and PT Current Medications: Current Medications Sig/Hilton Start time Last Medication Dose Route Stop Time Status Admin Acetaminophen 650 MG Q4P PRN 07/03 1245 AC PO Aspirin 81 MG DAILY 07/04 09 AC PO Atenolol 25 MG DAILY 07/04 09 AC PO Atorvastatin Calcium 20 MG 1700 07/03 1700 AC 07/03 PO 1606 Carbidopa/Levodopa 1 TAB 0800 07/04 0800 AC PO Carbidopa/Levodopa 1 TAB 1200,1700 07/03 1700 AC 07/03 PO 1606 Carbidopa/Levodopa 1 TAB TID 07/03 1400 DC PO Cefazolin Sodium 2 GM Q8H 07/03 1600 DC N/A 1 UNIT IV 07/04 0029 Cefazolin Sodium 2,000 MG Q8H 07/03 1600 DC 07/03 IV 07/04 0001 2329 Dextrose/Sodium 1,000 ML .[id number] 07/03 1245 AC 07/03 Chloride IV 2236 Diltiazem HCl 30 MG DAILY 07/04 900 AC PO Divalproex Sodium 500 MG DAILY 07/04 900 AC PO Divalproex Sodium 500 MG 0807/04 08 CAN PO Fentanyl Citrate 0 .STK-MED ONE 07/03 07 DC .ROUTE Levetiracetam 500 MG DAILY 07/04 900 AC PO Levetiracetam 1,000 MG QPM 07/03 2100 DC PO Levetiracetam 1,000 MG QPM 07/03 2100 AC 07/03 PO 2010 Levothyroxine Sodium 0.05 MG DAILY AC 07/04 07 AC PO Mirabegron 25 MG DAILY 07/03 1245 AC 07/03 PO 1605 Non-Formulary 0 SEE ADMIN CRITERIA 07/03 124 CAN Medication ANY Ondansetron HCl 4 MG Q6P PRN 07/03 1245 AC IV Oxycodone/ 1 TAB Q4P PRN 07/03 1245 AC 07/03 Acetaminophen PO 1950 Oxycodone/ 2 TAB Q4P PRN 07/03 1245 AC Acetaminophen PO Promethazine HCl 12.5 MG Q6P PRN 07/03 1245 AC IV 07/10 1129 Senna/Docusate Sodium 2 TAB DAILY 07/04 09 AC PO Results Last 48 Hours of Labs: Laboratory Tests 07/04 07/03 07/03 0420 2040 0615 Chemistry Sodium (137 - 145 mmol/L) Pending 132 L Potassium (3.5 - 5.1 mmol/L) Pending 4.1 Chloride (98 - 107 mmol/L) Pending 100 Carbon Dioxide (22 - 30 mmol/L) Pending 27 Anion Gap (5 - 16) Pending 5 BUN (9 - 20 mg/dL) Pending 12 Creatinine (0.7 - 1.2 mg/dL) Pending 0.8 Estimated GFR (>60 ml/min) > 60 BUN/Creatinine Ratio Pending Glucose (65 - 99 mg/dL) 163 H Calcium (8.4 - 10.2 mg/dL) 8.4 Phosphorus (2.5 - 4.5 mg/dL) 2.1 L Magnesium (1.6 - 2.3 mg/dL) 1.8 Total Bilirubin (0.2 - 1.3 mg/dL) 0.2 AST (17 - 59 U/L) 10 L ALT (21 - 72 U/L) 13 L Albumin (3.5 - 5.0 g/dL) 2.6 L Coagulation PT (9.4 - 12.5 SEC) 12.2 INR (0.90 - 1.17) 1.12 Hematology CBC w Diff MAN DIFF ORDERED WBC (4.8 - 10.8 /CUMM) Pending RBC (4.70 - 6.10 /CUMM) Pending Hgb (14.0 - 18.0 G/DL) Pending Hct (42 - 52 %) Pending MCV (80.0 - 94.0 FL) Pending MCH (27.0 - 31.0 PG) Pending MCHC (33.0 - 37.0 G/DL) Pending RDW (11.5 - 14.5 %) Pending Plt Count (130 - 400 /CUMM) Pending MPV (7.4 - 10.4 FL) Pending Gran % (42.2 - 75.2 %) Pending Lymphocytes % (20.5 - 51.1 %) Pending Monocytes % (1.7 - 9.3 %) Pending Eosinophils % (0 - 5 %) Pending Basophils % (0.0 - 2.0 %) Pending Absolute Granulocytes (1.4 - 6.5 /CUMM) Pending Segmented Neutrophils (42.2 - 75.2 %) Pending Absolute Lymphocytes (1.2 - 3.4 /CUMM) Pending Absolute Monocytes (0.10 - 0.60 /CUMM) Pending Absolute Eosinophils (0.0 - 0.7 /CUMM) Pending Absolute Basophils (0.0 - 0.2 /CUMM) Pending Assessment/Plan Assessment/Plan This is a 77 yo male with an extensive PMHx including; seizure disorder on divalproex and Keppra, coronary artery disease s/p CABG in October 2016, PVD, HTN, HLD, Hypothyroidism, parkinsons, CHF, afib on coumadin, Sick sinus syndrome with pacemaker, and abdominal aortic aneurysm 6 cm being who is now POD 0 s/p endovascular abdominal aortic aneurysm repair. Was admitted to the ICU yesterday for close neuro and cardiopulmonary monitoring. Remains HD stable. Plan: -Regular diet -Bed precautions for 24 hours. OOB with assistance later today -monitor incision sites for signs of bleeding/hematoma -fu AM labs (CBC, BMP) -likely resume aspirin today. need to clarify if patient should go back on his coumadin -Frequent neurovascular checks - Continue home seizures and cardiac meds -PT eval and case management to assist -Sveta dumas for DC later today. Patient from SNF, which they anticipate need for transfer back -Team will d/w Core Measures Venous Thromboembolism VTE Risk Factors Surgery No Mechanical VTE Prophylaxis d/t N/A MechProphylax Ordered No VTE Pharm Prophylaxis d/t NA PharmProphylax ordered
[2018-07-04 05:18] LABS: ABSOLUTE BASOPHIL COUNT 0 /CUMM (0.0-0.2); ABSOLUTE EOSINOPHIL COUNT 0 /CUMM (0.0-0.7); ABSOLUTE GRANULOCYTE CT 7.7 /CUMM (1.4-6.5); ABSOLUTE MONOCYTE COUNT 0.2 /CUMM (0.10-0.60); BASOPHIL % 0.1 % (0.0-2.0); EOSINOPHIL % 0 % (0-5); GRANULOCYTE % 86.2 % (42.2-75.2); HEMATOCRIT 35.1 % (42-52); MEAN CORPUSCULAR HGB 32.8 PG (27.0-31.0); MEAN CORPUSCULAR HGB CONC 33.7 G/DL (33.0-37.0); MEAN CORPUSCULAR VOLUME 97.2 FL (80.0-94.0); MEAN PLATELET VOLUME 7.2 FL (7.4-10.4); PLATELET COUNT 223 /CUMM (130-400); RBC DISTRIBUTION WIDTH 14.3 % (11.5-14.5); RED BLOOD CELL CT 3.61 /CUMM (4.70-6.10); WHITE BLOOD CELL COUNT 8.9 /CUMM (4.8-10.8)
[2018-07-04 08:00] VITALS: BP 100/70
--- NOTE | 2018-07-04 09:03 | RADIOLOGY REPORT ---
EXAMINATION: XR PORTABLE CHEST CLINICAL INFORMATION: Postop hypoxia COMPARISON: June 17, 2018 and October 25, 2016 TECHNIQUE: Portable frontal view of the chest was obtained. FINDINGS: No significant acute parenchymal disease identified. No pneumothorax or pleural effusion. Heart normal size. No evidence of pulmonary edema. Status post median sternotomy. Dual-chamber pacemaker in place. IMPRESSION: No significant acute parenchymal disease.
[2018-07-04] MEDS ORDERED: TYLENOL325 M1 PO (09:38)
[2018-07-04 09:48] VITALS: BP 98/52
--- NOTE | 2018-07-04 14:30 | PN- Vascular Surgery ---
Surgical Brief Attending Note Brief Attending Note: Pt doing well without complains. On exam his legs are warm and well perfused, without clinical ischemia. Bilateral groins soft without hematoma/ecchymosis. Labs WNL CXR without pulmonary edema. A/P: OOB with assist/PT OK to transfer to floor D/C fluids Restart coumadin Plan transfer to back to SNF
[2018-07-04 16:00] VITALS: BP 115/60
== END 2018-07-04 18:09 | DRG 269 ==
LOC: SDA 02:39 → UNDOADMIN 02:39 → SDA 07-03 02:19 → ENRESERV 07-03 10:58 → ENTRNSPT 07-03 11:44 → EDTRNSPT 07-03 11:46 → EDTRNSPTSTS 07-03 12:03 → CMPTRNSPT 07-03 12:28 → CRI 07-03 12:37
PROVIDERS: Nurse Practitioner; Surgery
PROC: 04V03DZ Restriction of Abdominal Aorta with Intraluminal Device, Percutaneous Approach (ICD-10-PCS; principal; 2018-07-03)
DX: I71.4 Abdominal aortic aneurysm, without rupture (principal); I25.10 Atherosclerotic heart disease of native coronary artery without angina pectoris; I10 Essential (primary) hypertension; I48.91 Unspecified atrial fibrillation; Z79.01 Long term (current) use of anticoagulants; I25.2 Old myocardial infarction; G47.33 Obstructive sleep apnea (adult) (pediatric); E03.9 Hypothyroidism, unspecified; Z91.81 History of falling; Z98.61 Coronary angioplasty status; Z95.0 Presence of cardiac pacemaker; Z86.73 Personal history of transient ischemic attack (TIA), and cerebral infarction without residual deficits; G20 Parkinson's disease; M19.90 Unspecified osteoarthritis, unspecified site; G40.909 Epilepsy, unspecified, not intractable, without status epilepticus; M54.9 Dorsalgia, unspecified; E78.5 Hyperlipidemia, unspecified; I87.2 Venous insufficiency (chronic) (peripheral); Z79.82 Long term (current) use of aspirin
CPT/HCPCS: CCU; SDA; 36415; 71045; 76000; 82436; 87086; 97161-GP; 97530-GO; C1725; C1760; J0131; J0690; J1644; J2001; J2405; J2550; J3490; J7042; Q9965; Q9967

== ENCOUNTER 2018-08-12 14:00 | Emergency (ER) | payer OTHER, MEDICARE ==
[~2018-08-12] VITALS: Ht 172.7 cm; Wt 98.0 kg
[~2018-08-12 14:00] MED LIST changes: +TYLENOL325 M1 PO
--- NOTE | 2018-08-12 16:14 | ED GENERAL ADULT ---
History of Present Illness General Chief Complaint: General Adult Stated Complaint: SENT IN FOR LOW B/P Source: patient, family Exam Limitations: no limitations Allergies Coded Allergies: No Known Allergies (08/12/18) Triage Note: PT TO ED WITH FAMILY FOR LOW BP THIS MORNING. PT'S BP WNL IN TRIAGE. PT DENIES ANY COMPLAINTS. Triage Nurses Notes Reviewed? yes Onset: Gradual Duration: hour(s): Timing: multiple episodes today Injury Environment: home Severity: moderate HPI: 77-year-old male with history of hypertension, recent AAA repair 07/03/18, a fib, CAD s/p CABG presents to ED complaining of hypotension per home blood pressure checks this morning. Per the , the patient was sleeping/napping more at home today so she check his BP and found it to be "low". Patient currently feels in his usual state of health, he has not complaints or symptoms at this time. Patient denies chest pain, dyspnea, presyncope, syncope, abdominal pain, vomiting, dizziness. Patient reports a normal appetite. reports that patient has had a history of his blood pressure being low however his recycling worker (Dr. Hoskins) has continued his antihypertensives for the time being. (Marisela GROVER,Meg Harrison) Vital Signs & Intake/Output Vital Signs & Intake/Output Vital Signs Date Time Temp Pulse Resp B/P B/P Pulse O2 O2 Flow FiO2 Mean Ox Delivery Rate 08/12 1816 103 18 128/72 96 Room Air 08/12 1623 Room Air 08/12 1623 112/72 08/12 1407 98.1 56 15 102/66 94 Room Air Room Air Reconcile Medications Aspirin (Aspirin*) 81 MG TAB.CHEW 1 TAB PO DAILY HEART HEALTH (Reported) Atenolol 25 MG TABLET 1 TAB PO DAILY BLOOD PRESSURE (Reported) Carbidopa/Levodopa (Carbidopa-Levo ER 50-200 Tab) 50 MG-200 MG TABLET.ER 1 TAB PO QAM PARKINSONS (Reported) Carbidopa/Levodopa (Carbidopa-Levodopa 25-100 Tab) 25 MG-100 MG TABLET 1 TAB PO 12 PM + 5 PM PARKINSONS (Reported) Diltiazem HCl (Cardizem) 30 MG TABLET 1 TAB PO DAILY RHYTHM CONTROL (Reported ) Divalproex Sodium (Depakote) 500 MG TABLET.DR 1 TAB PO DAILY SEIZURES ( Reported) Divalproex Sodium 500 MG TABLET.DR 2 TAB PO QPM SEIZURES (Reported) Furosemide 40 MG TABLET 1 TAB PO BID FLUID OVERLOAD (Reported) Levetiracetam (Keppra) 500 MG TABLET 2 TAB PO QPM SEIZURE (Reported) Levetiracetam (Keppra) 500 MG TABLET 1 TAB PO QAM SEIZURE (Reported) Levothyroxine Sodium 50 MCG TABLET 1 TAB PO DAILY THYROID (Reported) Mirabegron (Myrbetriq) 25 MG TAB.ER.24H 1 TAB PO QAM BLADDER (Reported) Multiple Vitamin (Multivitamins) 1 EACH TABLET 1 TAB PO DAILY SUPPLEMENT ( Reported) Potassium Chloride (Klor-Con M20) 20 MEQ TAB.ER.PRT 1 TAB PO BID HYPOKALEMIA (Reported) Sennosides (Senna) 8.6 MG TABLET 2 TAB PO DAILY constipation (Reported) Simvastatin (Simvastatin*) 40 MG TABLET 1 TAB PO QPM HLD (Reported) Warfarin Sodium (Coumadin) 2 MG TABLET 1 TAB PO DAILY BLOOD THINNER (Reported ) (Mariely STEVENS,[facility]) Past History Travel History Traveled to [place] past 21 day No Medical History Any Pertinent Medical History? see below for history Neurological: TIA, SEIZURE FORGETFULNESS? EENT: NONE Cardiovascular: AFIB, CAD, hypertension, hyperlipidemia, myocardial infarction, PACEMAKE chronic lower extremity edema with known venous insufficiency Respiratory: obstructive sleep apnea Gastrointestinal: NONE Hepatic: NONE Renal: UTI Musculoskeletal: chronic back pain, osteoarthritis, CELLULITIS Psychiatric: NONE DEPRESSION? Endocrine: NONE, HYPOTHYROID Blood Disorders: NONE Cancer(s): NONE INDUSTRIAL SEWER/Reproductive: NONE Other Medical Hx: seizures, hypertension, status post pacemaker, previous TIA, a history of ischemic heart disease, and a previous NE, obstructive sleep apnea, hypothyroidism, and hyperlipidemia. History of MRSA: No History of VRE: No History of CDIFF: No Surgical History Surgical History: CABG, VEIN STRIPPING RCW PACEMAKER LT WRIST SURGERY(SHAWN) Psychosocial History Who do you live with Spouse Services at Home None What is your primary language Vietnamese Tobacco Use: Quit >30 days ago Family History Hx Contributory? No (Marisela GROVER,Meg Harrison) Review of Systems Review of Systems Constitutional: Reports: see HPI. EENTM: Reports: no symptoms. Respiratory: Reports: no symptoms. Cardiovascular: Reports: see HPI. GI: Reports: no symptoms. Genitourinary: Reports: no symptoms. Musculoskeletal: Reports: no symptoms. Skin: Reports: no symptoms. Neurological/Psychological: Reports: no symptoms. Hematologic/Endocrine: Reports: no symptoms. Immunologic/Allergic: Reports: no symptoms. All Other Systems: Reviewed and Negative (Marisela GROVER,Meg Harrison) Physical Exam Physical Exam General Appearance: well developed/nourished, no apparent distress, alert, awake Head: atraumatic, normal appearance Eyes: Bilateral: normal appearance, PERRL, EOMI. Ears, Nose, Throat: hearing grossly normal Neck: normal inspection, supple, full range of motion Respiratory: normal breath sounds, no respiratory distress, lungs clear Cardiovascular: regular rate/rhythm, normal peripheral pulses Peripheral Pulses: 2+ radial (R), 2+ radial (L) Gastrointestinal: normal bowel sounds, soft, non-tender, no organomegaly Back: normal inspection, normal range of motion Extremities: normal inspection, normal range of motion Neurologic/Psych: awake, alert, oriented x 3 Skin: intact, normal color, warm/dry Core Measures ACS in differential dx? No CVA/TIA Diagnosis: No Sepsis Present: No Sepsis Focused Exam Completed? No (Marisela GROVER,Meg Harrison) Progress Differential Diagnoses I considered the following diagnoses in my evaluation of the patient: [ hypotension, medication adverse reaction, presyncope, orthostasis, dehydration, aortic dissection] Diagnostic Imaging: Viewed by Me: Radiology Read. Discussed w/RAD: Radiology Read. CXR Impression: PATIENT: PHANI SUMMERS PRESENT AGE: 77 PATIENT ACCOUNT NO: [id number] : 42 LOCATION: [facility] ORDERING PHYSICIAN: Meg GROVER SERVICE DATE: 08/12/18 EXAM TYPE: RAD - XRY-PORTABLE CHEST XRAY EXAMINATION: XR PORTABLE CHEST CLINICAL INFORMATION: Hypotension. COMPARISON: 07/04/2018 TECHNIQUE: Portable frontal view of the chest was obtained. FINDINGS: Lungs are symmetrically expanded and grossly clear. No pulmonary edema, consolidation or pleural effusion. Surgical changes of prior coronary bypass grafting with intact sternotomy wires in place. Dual chamber cardiac pacemaker. Cardiac silhouette is normal in size. Mild atherosclerotic calcification of the aortic arch. The visualized bones are intact. IMPRESSION: No acute pulmonary disease compared to 07/04/2018. DICTATED BY: Alex Dow MD DATE/TIME DICTATED:08/12/181718 ADVISORY SERVICES ASSOCIATE: BARRON DATE/TIME TRANSCRIBED:08/12/181718 CONFIDENTIAL, DO NOT COPY WITHOUT APPROPRIATE AUTHORIZATION. <Electronically signed in Other Vendor System> SIGNED BY: Alex Dow MD 08/12/18 1724 Initial ED EKG: ATRIAL PACED RHYTHM @60BPM Prior EKG: unchanged (06/17/18) (Marisela GROVER,Meg Harrison) Plan of Care: Orders Procedure Date/time Status MISTAKE 08/12 161 Active TROPONIN LEVEL 08/12 161 Complete COMPREHENSIVE METABOLIC PANEL 08/12 1613 Complete CBC WITHOUT DIFFERENTIAL 08/12 1613 Complete EKG 08/12 1613 Active Laboratory Tests 08/12/18 1635: Anion Gap 5, Estimated GFR > 60, BUN/Creatinine Ratio 21.0, Glucose 98, Calcium 8.9, Total Bilirubin 0.2, AST 14 L, ALT 14 L, Alkaline Phosphatase 51, Troponin I < 0.01, Total Protein 5.6 L, Albumin 3.1 L, Globulin 2.5, Albumin/ Globulin Ratio 1.2, CBC w Diff NO MAN DIFF REQ, RBC 4.10 L, MCV 97.3 H, MCH 33.2 H, MCHC 34.1, RDW 14.8 H, MPV 7.1 L, Gran % 49.1, Lymphocytes % 42.3, Monocytes % 6.6, Eosinophils % 1.6, Basophils % 0.4, Absolute Granulocytes 2.0, Absolute Lymphocytes 1.7, Absolute Monocytes 0.3, Absolute Eosinophils 0.1, Absolute Basophils 0 On patient's arrival here in the emergency department his blood pressure is low however is stable. Repeat blood pressure checks have showed improvement, blood pressure at time of discharge has normalized. Patient's orthostatic vital signs are negative, patient does not experience dizziness or presyncope while at rest or with standing/ambulation. Dr. Schuster spoke with Dr. Hoskins regarding this patient - we will discontinue Cardizem for the time being. Patient to follow-up with cardiology. Strict return precautions given, will continue to check the patient's blood pressure at home and return with further hypotensive episodes. They understand and agree with the plan of care. Considered the diagnosis of aortic dissection given the patient's recent AAA repair however patient has no symptoms at this time, he has improving blood pressure without orthostasis, he has no abdominal tenderness or complaints of chest/abdominal/back pain. Dr. Schuster agrees with the plan of care. (Meg Veliz) (Mariely STEVENS,[facility]) Departure Departure Disposition: HOME OR SELF CARE Condition: Stable Clinical Impression Primary Impression: Hypotension Qualifiers: Hypotension type: unspecified hypotension type Qualified Code: I95.9 - Hypotension, unspecified Referrals: Ben Santamaria MD (PCP/Family) Additional Instructions: Discontinue cardizem. Continue to monitor blood pressure at home. Follow up with Dr. Hoskins this week. Return with worsening symptoms or concerns. Please note that there might be incidental findings in your evaluation that are unrelated to the current emergency department visit. Please notify your primary care doctor about this emergency department visit in order to obtain and review all of the testing performed so that these incidental findings can be monitored as needed. If you had an x-ray performed, please understand that some fractures may not be seen on the initial set of x-rays. If your symptoms persist you might need a repeat set of x-rays to check for such a fracture. If you had a laceration evaluated, please understand that foreign bodies such as glass or wood may not be visible to the naked eye or on plain x-rays. If the wound becomes red, swollen, increasingly more painful or if there is any drainage from the wound, please have it reevaluated by a physician for the possibility of a retained foreign body. If you're unable to follow up as outlined in the discharge instructions please return to the emergency department. Thank you for choosing the [facility] Emergency Department for your care. It was a pleasure to serve you today. Departure Forms: Customer Survey General Discharge Information (Marisela GROVER,Meg Harrison) PA/COMPUTER HARDWARE ENGINEER Co-Sign Statement Statement: ED Attending supervision documentation- [x] I saw and evaluated the patient. I have also reviewed all the pertinent lab results and diagnostic results. I agree with the findings and the plan of care as documented in the PA's/COMPUTER HARDWARE ENGINEER's documentation. [] I have reviewed the ED Record and agree with the PA's/COMPUTER HARDWARE ENGINEER's documentation. [] Additions or exceptions (if any) to the PAs/COMPUTER HARDWARE ENGINEER's note and plan are summarized below: [] 77-year-old sent in for hypotension. The patient was initially sent in for the blood pressure in the 90s. His blood pressure has been over 100 since his been here. He has a history of hypertension and he takes atenolol and diltiazem. I spoke with his recycling worker stated that his office was called yesterday with low blood pressures and when he called back the blood pressure was okay so we made no changes. The patient is quite asymptomatic and comfortable. Plan: We will check orthostatics on the patient. If everything is benign we will hold off on the patient's atenolol until his pressure is over 140/90 in the my family would monitor blood pressure twice a day at home. If the pressure is not normal then we will treat the patient appropriately. No signs, history or physical exam findings suggestive of AAA issues, patient has no pain/issues in the abdomen (Mariely STEVENS,[facility]) Critical Care Note Critical Care Note Critical Care Time: non-applicable (Marisela GROVER,Meg Harrison)
[2018-08-12 16:50] LABS: ABSOLUTE BASOPHIL COUNT 0 /CUMM (0.0-0.2); ABSOLUTE EOSINOPHIL COUNT 0.1 /CUMM (0.0-0.7); ABSOLUTE LYMPH COUNT 1.7 /CUMM (1.2-3.4); ABSOLUTE MONOCYTE COUNT 0.3 /CUMM (0.10-0.60); BASOPHIL % 0.4 % (0.0-2.0); EOSINOPHIL % 1.6 % (0-5); GRANULOCYTE % 49.1 % (42.2-75.2); HEMATOCRIT 39.9 % (42-52); MEAN CORPUSCULAR HGB 33.2 PG (27.0-31.0); MEAN CORPUSCULAR HGB CONC 34.1 G/DL (33.0-37.0); MEAN CORPUSCULAR VOLUME 97.3 FL (80.0-94.0); MEAN PLATELET VOLUME 7.1 FL (7.4-10.4); PLATELET COUNT 231 /CUMM (130-400); RBC DISTRIBUTION WIDTH 14.8 % (11.5-14.5); WHITE BLOOD CELL COUNT 4.1 /CUMM (4.8-10.8)
--- NOTE | 2018-08-12 17:24 | RADIOLOGY REPORT ---
EXAMINATION: XR PORTABLE CHEST CLINICAL INFORMATION: Hypotension. COMPARISON: 07/04/2018 TECHNIQUE: Portable frontal view of the chest was obtained. FINDINGS: Lungs are symmetrically expanded and grossly clear. No pulmonary edema, consolidation or pleural effusion. Surgical changes of prior coronary bypass grafting with intact sternotomy wires in place. Dual chamber cardiac pacemaker. Cardiac silhouette is normal in size. Mild atherosclerotic calcification of the aortic arch. The visualized bones are intact. IMPRESSION: No acute pulmonary disease compared to 07/04/2018.
[2018-08-12] MEDS ORDERED: DIVALPROEX SOD500 M2 PO (17:46)
[2018-08-12] MEDS ORDERED: COUMADIN2 M1 PO (17:48)
[2018-08-12] MEDS ORDERED: MULTIVITAMINS1 EAC9 PO (17:49)
[2018-08-12 18:16] VITALS: BP 128/72
== END 2018-08-12 19:41 ==
LOC: ERH 14:00
PROVIDERS: Physician Assistant
DX: I95.9 Hypotension, unspecified (principal); R56.9 Unspecified convulsions; I48.91 Unspecified atrial fibrillation; I10 Essential (primary) hypertension; I25.10 Atherosclerotic heart disease of native coronary artery without angina pectoris; E78.5 Hyperlipidemia, unspecified; G47.33 Obstructive sleep apnea (adult) (pediatric)
CPT/HCPCS: 71045; 93005; 93010